=== PATIENT | male | born 1930 | race Caucasian/White ===

== ENCOUNTER 2017-02-06 19:59 | Inpatient (IN) ==
--- NOTE | 2017-02-06 20:44 | Emergency Department Note ---
Arrival - Arrival Chief Complaint: Upper Respiratory Stated Complaint: sob,cold ED Nursing Triage Note: C/O Productive cough/fever. Onset 2 weeks ago, but progressively getting worse. Pt reports that he was seen in ED Saturday for the same c/o and was started on meds which he has been taking without relief. Mode of Arrival: Ambulatory Time Seen by Provider: 02/06/17 20:36 - History of Present Illness HPI Narrative: The patient presents complaining of shortness of breath and wheezing which has worsened since the weekend. He was seen by Dr. Parker over the weekend and discharged after thorough workup. He states since that time he has had one episode of atrial fibrillation and tonight felt like his heart was getting fast again and he came in to be evaluated. He has had constant shortness of breath since the weekend which waxes and wanes. This is worse tonight and associated with audible wheezes. He denies any fever or productive cough with sputum. He says a breathing treatment given to him over the weekend greatly improved his symptoms. Allergies/Adverse Reactions: Allergies Allergy/AdvReac Type Severity Reaction Status Date / Time No Known Allergies Allergy Verified 02/02/17 09:21 Home Medications: Home Medications Medication Instructions Recorded Confirmed Type Furosemide Tab [Lasix Tab] 20 mg PO QPM 05/20/15 02/02/17 History Albuterol Inhaler [Proventil 2 puff INH Q6H PRN #1 inhaler 02/02/17 Rx Inhaler] Azithromycin [Zithromax] 500 mg PO DAILY #5 tablet 02/02/17 Rx Diltiazem HCl [Cartia XT] 300 mg PO DAILY 02/02/17 02/02/17 History Fluticasone Propionate [Flonase 1 spray BOTH NARES DAILY #10 ml 02/02/17 Rx Allergy Relief] Metoprolol Tartrate Tab [Lopressor 100 mg PO DAILY 02/02/17 02/02/17 History Tab] Warfarin [Coumadin] 7.5 mg PO QPM 02/02/17 02/02/17 History guaiFENesin/DM ER 600-30 [Mucinex 1 tablet PO BID #20 tablet 02/02/17 Rx Dm 600-30 MG] Review of System - Review of System 12 point system: reviewed and no additional remarkable complaints except as stated Medical,Surgical,& Family Hx - Medical History Cardio: History of: Cardiac Dysrhythmia (A-FIB), CAD, Hypertension Respiratory: History of: COPD Other: History of: Miscellaneous Medical Problems (history of Lyme disease) - Social History Smoking Status: Never smoker Frequency of Alcohol Use: None Type of Drug Use: None Exam Physical Examination: General: Patient is well-developed and well-nourished with no acute distress noted. HEENT: The extraocular muscles are intact. Oropharynx is moist. There is no erythema or exudate. The tympanic membranes are shiny bilaterally. Neck: There is no adenopathy. Full range of motion is noted without pain. The trachea is midline. No JVD is present. Lungs: There is normal excursion of the chest with the lungs demonstrating rhonchi and wheezes bilaterally. No subcostal retractions are present. There is no point tenderness present. Heart: The heart has a regular rate and rhythm with no gallops or murmurs. Abdomen: The abdomen is nontender and nondistended with no rebound, guarding, or masses. Bowel sounds are normal. Back: The back demonstrates a normal appearance with no evidence of trauma. Genitourinary: Not examined. Extremities: The extremities demonstrate no clubbing, cyanosis, or edema. The visualized range of motion is normal. They appear atraumatic. Neuro: Cranial nerves II through XII are checked and intact. There is no focal motor or sensory deficit seen in the extremities. Skin: Skin is warm and dry with no evidence of rash. Vital Signs: Vital Signs Temperature 100.5 F H 02/06/17 20:04 Pulse Rate 93 H 02/06/17 22:09 Respiratory Rate 20 02/06/17 22:09 Blood Pressure 117/57 02/06/17 22:09 O2 Sat by Pulse Oximetry 93 L 02/06/17 22:09 Course - Consultations Consultation #1: Dr. Josh Ahumada will evaluate and admit the patient. Time: 22:26 Results - Labs CBC & BMP: 02/06/17 20:29 02/06/17 20:29 Lab Results: I have reviewed the patients labs Labs: Lab Results WBC 10.0 T/CUMM (4-12) 02/06/17 20:29 RBC 5.06 MC/CUMM (3.8-5.5) 02/06/17 20:29 Hgb 15.4 GM/DL (14.0-18.0) 02/06/17 20: Hct 46.3 VOL% (42.0-52.0) 02/06/17 20: MCV 91.5 FL (87-102) 02/06/17 20: MCH 30 PG (27-34) 02/06/17 20: MCHC 33.3 GM/DL (32-36) 02/06/17 20: RDW 14.3 % (9.3-17.3) 02/06/17: Plt Count 179 T/CUMM (130-400) 02/06/17 20: MPV 10.3 FL (9.6-12.0) 02/06/17: Neut % (Auto) 72.6 % (38.7-73.9) 02/06/17: Lymph % (Auto) 10.6 % (21.2-54.2) L 02/06/17: [place] % (Auto) 12.2 % (1.7-12.7) 02/06/17: Eos % (Auto) 2.5 % (0.00-10.9) 02/06/17 20: Baso % (Auto) 0.8 % (0.0-0.8) 02/06/17: Neut # (Auto) 7.3 10*3/uL (1.4-7.4) 02/06/17: Lymph # (Auto) 1.1 10*3/uL (1.4-4.0) L 02/06/17: [place] # (Auto) 1.2 10*3/uL (0.11-0.8) H 02/06/17 20: Eos # (Auto) 0.3 10*3/uL (0.0-0.87) 02/06/17: Baso # (Auto) 0.1 10*3/uL (0.0-0.2) 02/06/17 20: Immature Gran % 1.3 % 02/06/17 20: Nucleated RBC % 0.0 /100WBC 02/06/17 20: Immature Gran # 0.13 # 02/06/17 20: Nucleated RBCs # 0.00 10*3/uL 02/06/17 20:29 INR 3.6 02/06/17 20:29 PT Patient/Control Mix 41.6 SECS D 02/06/17 20: Sodium 140 MMOL/L (136-145) 02/06/17 20: Potassium 4.0 MMOL/L (3.5-5.1) 02/06/17 20: Chloride 105 MMOL/L (98-107) 02/06/17 20: Carbon Dioxide 27 MMOL/L (21-32) 02/06/17 20: Anion Gap 12.0 MMOL/L (5.0-15.0) 02/06/17 20: BUN 16 MG/DL (7-18) 02/06/17: Creatinine 1.20 MG/DL (0.70-1.30) 02/06/17 20: GFR Calculation 64 ML/MIN 02/06/17: BUN/Creatinine Ratio 13.00 RATIO (6.00-20.00) 02/06/17: Glucose 107 MG/DL (74-106) H 02/06/17 20: Calculated Osmolality 279.4 MOS/KG (273-304) 02/06/17 20: Calcium 8.3 MG/DL (8.5-10.1) L 02/06/17: Magnesium 2.2 MG/DL (1.8-2.4) 02/06/17 20: Total Bilirubin 1.10 MG/DL (0.2-1.0) H 02/06/17 20: AST 21 U/L (0-37) 02/06/17: ALT 18 U/L (16-61) 02/06/17 20: Alkaline Phosphatase 86 U/L (45-117) 02/06/17 20:29 Troponin I < 0.015 NG/ML (0.00-0.045) 02/06/17 20: B-Natriuretic Peptide 161 PG/ML (2-100) H 02/06/17 20:29 Total Protein 6.3 G/DL (6.4-8.3) L 02/06/17 20: Albumin 3.4 G/DL (3.4-5.0) 02/06/17 20: Globulin 2.9 G/DL (2.3-3.5) 02/06/17 20:29 Albumin/Globulin Ratio 1.1 RATIO (1.1-2.2) 02/06/17 20:29 - Diagnostic Findings Procedure: Chest x-ray: report reviewed by me Disposition Clinical Impression: Chronic anticoagulation, Afib, Hypertension, Hypoxemia, Wheezing Case discussed with: patient, patient's family Disposition: Still a Patient Condition: Stable Time of Disposition: 22:26
[2017-02-06] MEDS ORDERED: methylPREDNISolone SOD SUC 125 MG/2 ML VIAL IV STA (20:46)
[2017-02-06] MEDS ORDERED: ALBUTEROL 2.5 MG/3 ML NEB RESP TX STA (20:46)
[2017-02-06] MEDS ORDERED: methylPREDNISolone SOD SUC 125 MG/2 ML VIAL ONE (20:49)
[2017-02-06 20:57] LABS: Basophils # 0.1 10*3/uL (0.0-0.2); Basophils % 0.8 % (0.0-0.8); Eosinophils # 0.3 10*3/uL (0.0-0.87); Eosinophils % 2.5 % (0.00-10.9); Hematocrit 46.3 VOL% (42.0-52.0); Hemoglobin 15.4 GM/DL (14.0-18.0); Immature Granulocytes % 1.3 %; Immature Granulocytes Absolute 0.13 #; Lymphocytes # 1.1 10*3/uL (1.4-4.0); Lymphocytes % 10.6 % (21.2-54.2); Mean Corpuscular HGB Conc 33.3 GM/DL (32-36); Mean Corpuscular Hemoglobin 30 PG (27-34); Mean Corpuscular Volume 91.5 FL (87-102); Mean Platelet Volume 10.3 FL (9.6-12.0); Monocytes # 1.2 10*3/uL (0.11-0.8); Monocytes % 12.2 % (1.7-12.7); Neutrophils # 7.3 10*3/uL (1.4-7.4); Neutrophils % 72.6 % (38.7-73.9); Platelet Count 179 T/CUMM (130-400); Red Blood Count 5.06 MC/CUMM (3.8-5.5); Red Cell Distribution Width 14.3 % (9.3-17.3)
[2017-02-06 21:07] LABS: INR 3.6
[2017-02-06 21:08] LABS: PT Patient Result 41.6 SECS
[2017-02-06 21:12] LABS: Alanine Aminotransferase 18 U/L (16-61); Albumin 3.4 G/DL (3.4-5.0); Alkaline Phosphatase 86 U/L (45-117); Aspartate Amino Transferase 21 U/L (0-37); Blood Urea Nitrogen 16 MG/DL (7-18); Calcium 8.3 MG/DL (8.5-10.1); Glucose 107 MG/DL (74-106); Magnesium 2.2 MG/DL (1.8-2.4); Osmolality,Calculated 279.4 MOS/KG (273-304); Sodium 140 MMOL/L (136-145); Total Protein 6.3 G/DL (6.4-8.3); Troponin I Only < 0.015 NG/ML (0.00-0.045)
--- NOTE | 2017-02-06 21:15 | XRay Report ---
Exam: XR chest 1V portable Date: 02/06/2017 8:47 PM Indication: Shortness of breath Comparison: 02/02/2017 Technical: AP semierect portable Findings: Mild cardiac enlargement present. Basilar atelectatic change present. Surgical clips present mid sternal midclavicular region. Oxygen tubing is present. ASVD is present. No pneumothorax. Arthritic change present over the shoulders right greater than left Impression: 1. Cardiomegaly 2. Minimal basilar atelectasis bilaterally without consolidating infiltrate 3. Arthritic changes right shoulder 4. Previous surgery over the midclavicular region PROCEDURE INTERPRETED AT [facility] DEPARTMENT OF RADIOLOGY Final Report Signed by: Dr. Desmond Pete
[2017-02-06] MEDS ORDERED: ACETAMINOPHEN 325 MG TABLET PO PRN (23:00)
[2017-02-06] MEDS ORDERED: ONDANSETRON 4 MG/2 ML VIAL IV PRN (23:00)
[2017-02-06] MEDS ORDERED: MORPHINE 2 MG/1 ML SYRINGE IV PRN (23:00)
--- NOTE | 2017-02-06 23:03 | Hospitalist History & Physical ---
Assessment and Plan (1) Acute exacerbation of chronic obstructive pulmonary disease (COPD) Status: Acute Current Visit: Yes (2) Acute bronchitis Status: Acute Current Visit: Yes (3) Chronic atrial fibrillation Status: Acute Assessment and plan: Plan: We will admit for IV antibiotics, breathing treatments, steroids Continue anticoagulation for chronic atrial fibrillation, daily PT/INR Current Visit: Yes History of Present Illness Chief complaint: Difficulty breathing 1-2 days with cough History of present illness: Mr. Rader is a 86 year old male with COPD, formerly a patient of Dr. Castillo, chronic atrial fibrillation, on Coumadin, who is here with a days worsening of productive cough and wheezing. He denies hemoptysis, fever, or chills. He denies chest pain. He is a non-smoker. His cough is productive of yellow sputum. He has no nausea vomiting or diarrhea. He is short of breath but in no distress. His symptoms are constant and worsening. Home Medications Medication Instructions Recorded Confirmed Type Furosemide Tab [Lasix Tab] 20 mg PO QPM 05/20/15 02/02/17 History Albuterol Inhaler [Proventil 2 puff INH Q6H PRN #1 inhaler 02/02/17 Rx Inhaler] Azithromycin [Zithromax] 500 mg PO DAILY #5 tablet 02/02/17 Rx Diltiazem HCl [Cartia XT] 300 mg PO DAILY 02/02/17 02/02/17 History Fluticasone Propionate [Flonase 1 spray BOTH NARES DAILY #10 ml 02/02/17 Rx Allergy Relief] Metoprolol Tartrate Tab [Lopressor 100 mg PO DAILY 02/02/17 02/02/17 History Tab] Warfarin [Coumadin] 7.5 mg PO QPM 02/02/17 02/02/17 History guaiFENesin/DM ER 600-30 [Mucinex 1 tablet PO BID #20 tablet 02/02/17 Rx Dm 600-30 MG] Allergies Allergy/AdvReac Type Severity Reaction Status Date / Time No Known Allergies Allergy Verified 02/02/17 09:21 Medical,Surgical,& Family Hx - Medical History Cardio: History of: Cardiac Dysrhythmia (A-FIB), CAD, Hypertension Respiratory: History of: COPD Gastrointestinal: No history of: GERD Other: History of: Miscellaneous Medical Problems (history of Lyme disease) - Surgical History HEENT Surgeries: Surgical HX of: Eye Surgery - Family History Family History: Reports;: Family Hypertension - Social History Smoking Status: Never smoker Frequency of Alcohol Use: None Type of Drug Use: None Marital Status: Lives With:: Alone Functional capacity: independent ambulation Review of systems: A 12 point review of systems is negative except as specified in the HPI Exam - Constitutional Vitals: Period Temp Pulse Resp BP Sys/Miles Pulse Ox Last 24 Hr 100.5 F-100.5 F 77-94 20-30 117-154/57-99 92-99 Exam: EXAM: CONSTITUTIONAL: non toxic, NAD, hard of hearing HEENT: NC, AT, OP benign, ARIELLE, EOMI CV: Irregular + 2/6 systolic ejection murmur RESP: Coarse bilaterally, bilateral expiratory wheezes with prolonged expiratory phase GI: abd soft, NT, ND, +bowel sounds INTEGUMENTARY: no lesions or rash EXTREMITIES: Trace bilateral lower extremity edema NEURO: no focal deficits PSYCH: Awake, alert, pleasant Results - Labs CBC & BMP: 02/06/17 20:29 02/06/17 20:29 Lab Results: I have reviewed the past 24 hour labs - Diagnostic Findings Procedure: Chest x-ray: image reviewed by me, report reviewed by me Quality Measures - VTE Contraindication to Pharmacological VTE Prophylaxis: Already on Theraputic Agent , No Prophylaxis Needed
[2017-02-07] MEDS: LEVOFLOXACIN INJ 750 MG in PREMIX 1 EACH IV SCH ×2 (01:14→23:51)
[2017-02-07] MEDS: ALBUTEROL/IPRATROPIUM 3 ML NEB RESP TX SCH ×4 (02:10→19:49)
[2017-02-07] MEDS: methylPREDNISolone SOD SUC 40 MG/1 ML VIAL IV SCH ×3 (04:50→20:05)
--- NOTE | 2017-02-07 08:34 | EKG Report ---
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
[2017-02-07] MEDS: guaiFENesin/DM ER 600-30 MG TABLET PO SCH ×2 (08:47→20:05)
[2017-02-07] MEDS: PANTOPRAZOLE 40 MG TABLET PO SCH (08:47)
[2017-02-07] MEDS: BUDESONIDE/FORMOTEROL 160-4.5 INHALER 6 GM INH SCH ×2 (08:47→20:08)
[2017-02-07] MEDS: FLUTICASONE 50 MCG NASAL SPRAY 16 GM BOTTLE BOTH NARES SCH (08:48)
[2017-02-07] MEDS: METOPROLOL TARTRATE 100 MG TABLET PO SCH (08:48)
[2017-02-07] MEDS: DILTIAZEM CD 300 MG CAPSULE PO SCH (08:48)
[2017-02-07 09:34] LABS: Basophils % 0.2 % (0.0-0.8); Hematocrit 44.3 VOL% (42.0-52.0); Hemoglobin 14.7 GM/DL (14.0-18.0); Immature Granulocytes % 3.8 %; Immature Granulocytes Absolute 0.22 #; Lymphocytes # 0.4 10*3/uL (1.4-4.0); Lymphocytes % 6.8 % (21.2-54.2); Mean Corpuscular HGB Conc 33.2 GM/DL (32-36); Mean Corpuscular Hemoglobin 30 PG (27-34); Mean Corpuscular Volume 91.3 FL (87-102); Mean Platelet Volume 10.5 FL (9.6-12.0); Monocytes # 0.1 10*3/uL (0.11-0.8); Monocytes % 1.2 % (1.7-12.7); Platelet Count 150 T/CUMM (130-400); Red Blood Count 4.85 MC/CUMM (3.8-5.5); Red Cell Distribution Width 14.1 % (9.3-17.3); White Blood Count 5.7 T/CUMM (4-12)
[2017-02-07 09:52] LABS: Albumin 3.1 G/DL (3.4-5.0); Bilirubin,Total 1.2 MG/DL (0.2-1.0); Calcium 8.2 MG/DL (8.5-10.1); Osmolality,Calculated 287.4 MOS/KG (273-304); Potassium 3.9 MMOL/L (3.5-5.1); Total Protein 5.6 G/DL (6.4-8.3)
--- NOTE | 2017-02-07 14:19 | Hospitalist Progress Note ---
Assessment and Plan (1) Acute exacerbation of chronic obstructive pulmonary disease (COPD) Status: Acute Assessment and plan: The patient is admitted to hospital with exacerbation of COPD. We will continue treatment with beta agonist nebulized breathing therapies, intravenous steroids, and intravenous antibiotic. Will reevaluate breathing basic metabolic profile and CBC in the morning. Anticipated length of stay is 7 days. Current Visit: Yes (2) Hypertension Status: Acute Current Visit: Yes Qualifiers: Hypertension type: essential hypertension Qualified Code(s): I10 - Essential (primary) hypertension Hospitalist: Subjective Interval history: The patient was admitted to the hospital yesterday evening with COPD exacerbation. The patient had previously seen Dr. Castillo for many years. The patient's symptoms are improved from last night but he did have some tremulousness today which was likely on account of the beta agonist treatment. The patient's appetite is improving and he has less shortness of breath at rest. Exam - Constitutional Vitals: Period Temp Pulse Resp BP Sys/Miles Pulse Ox Last 24 Hr 96.4 F-98.3 F 71-104 18-25 108-125/53-77 91-98 Exam: Constitutional System: Moderate distress. Mild tremulousness. Head: Normocephalic, atraumatic. Ears, Nose and Throat System: No evidence of Otitis or Mastoiditis. No epistaxis or discharge Eyes System: Pupils equal, round, and reactive. Extraocular muscles intact. Neck: Supple, without adenopathy, No jugular venous distention. No thyromegaly , neck mass, or prior surgery apparent. Respiratory System: Chest moderate air trapping mild wheezing to auscultation. Cardiovascular System: Heart with regular tachycardic rate and rhythm. No murmur. GI System: Abdomen soft, nontender. Normo active bowel sounds present. Musculoskeletal System: limbs with no pedal edema. Full distal pulses. Neurological System: No discernable sensory deficit. No aphasia Psychiatric System: Conversation is rational Results - Labs CBC & BMP: 02/07/17 09:09 02/07/17 09:09 Lab Results: I have reviewed the past 24 hour labs Quality Measures - VTE Contraindication to Pharmacological VTE Prophylaxis: Already on Theraputic Agent , No Prophylaxis Needed
[2017-02-07] MEDS: FUROSEMIDE 20 MG TABLET PO SCH (20:04)
[2017-02-07] MEDS: BISACODYL 5 MG TABLET PO PRN (20:07)
[2017-02-08] MEDS: ALBUTEROL/IPRATROPIUM 3 ML NEB RESP TX SCH ×4 (00:07→23:41)
[2017-02-08] MEDS: methylPREDNISolone SOD SUC 40 MG/1 ML VIAL IV SCH ×3 (04:23→23:15)
[2017-02-08 06:55] LABS: Basophils % 0.2 % (0.0-0.8); Hematocrit 42.4 VOL% (42.0-52.0); Hemoglobin 14.2 GM/DL (14.0-18.0); Immature Granulocytes % 2.2 %; Immature Granulocytes Absolute 0.29 #; Lymphocytes # 0.7 10*3/uL (1.4-4.0); Mean Corpuscular HGB Conc 33.5 GM/DL (32-36); Mean Corpuscular Hemoglobin 31 PG (27-34); Mean Corpuscular Volume 91.6 FL (87-102); Mean Platelet Volume 10.8 FL (9.6-12.0); Monocytes # 0.7 10*3/uL (0.11-0.8); Monocytes % 5.3 % (1.7-12.7); Neutrophils # 11.4 10*3/uL (1.4-7.4); Neutrophils % 87.3 % (38.7-73.9); Platelet Count 171 T/CUMM (130-400); Red Blood Count 4.63 MC/CUMM (3.8-5.5); Red Cell Distribution Width 14.5 % (9.3-17.3); White Blood Count 13.1 T/CUMM (4-12)
[2017-02-08 07:16] LABS: Calcium 8.6 MG/DL (8.5-10.1); Magnesium 2.4 MG/DL (1.8-2.4); Osmolality,Calculated 284.3 MOS/KG (273-304); Potassium 3.7 MMOL/L (3.5-5.1)
[2017-02-08] MEDS: METOPROLOL TARTRATE 100 MG TABLET PO SCH (08:58)
[2017-02-08] MEDS: DILTIAZEM CD 300 MG CAPSULE PO SCH (08:58)
[2017-02-08] MEDS: BUDESONIDE/FORMOTEROL 160-4.5 INHALER 6 GM INH SCH ×2 (08:58→20:46)
[2017-02-08] MEDS: PANTOPRAZOLE 40 MG TABLET PO SCH (08:58)
[2017-02-08] MEDS: guaiFENesin/DM ER 600-30 MG TABLET PO SCH ×2 (08:58→20:46)
[2017-02-08] MEDS: FLUTICASONE 50 MCG NASAL SPRAY 16 GM BOTTLE BOTH NARES SCH (08:59)
--- NOTE | 2017-02-08 10:53 | Hospitalist Progress Note ---
Assessment and Plan (1) Acute exacerbation of chronic obstructive pulmonary disease (COPD) Status: Acute Assessment and plan: The patient is admitted to hospital with exacerbation of COPD. We will continue treatment with beta agonist nebulized breathing therapies, intravenous steroids, and intravenous antibiotic. I am going to reduce Solu-Medrol to 20 mg twice daily and reduce DuoNeb to 1.5 mL every 8 hours. Will reevaluate breathing tomorrow and anticipate discharge home. Current Visit: Yes (2) Hypertension Status: Acute Current Visit: Yes Qualifiers: Hypertension type: essential hypertension Qualified Code(s): I10 - Essential (primary) hypertension Hospitalist: Subjective Interval history: The patient is breathing better. He complains of jitteriness and nervousness. He did not cooperate with nebulized therapy this morning on account of the palpitations it caused on a previous occasion. Exam - Constitutional Vitals: Period Temp Pulse Resp BP Sys/Miles Pulse Ox Last 24 Hr 96.4 F-98.3 F 52-126 16-20 94-125/49-77 92-97 Exam: Constitutional System: Minimal distress. Mild tremulousness. Head: Normocephalic, atraumatic. Ears, Nose and Throat System: No evidence of Otitis or Mastoiditis. No epistaxis or discharge Eyes System: Pupils equal, round, and reactive. Extraocular muscles intact. Neck: Supple, without adenopathy, No jugular venous distention. No thyromegaly , neck mass, or prior surgery apparent. Respiratory System: Chest minimal air trapping mild wheezing to auscultation. Cardiovascular System: Heart with regular tachycardic rate and rhythm. No murmur. GI System: Abdomen soft, nontender. Normo active bowel sounds present. Musculoskeletal System: limbs with no pedal edema. Full distal pulses. Neurological System: No discernable sensory deficit. No aphasia Psychiatric System: Conversation is rational Results - Labs CBC & BMP: 02/08/17 06:24 02/08/17 06:24 Lab Results: I have reviewed the past 24 hour labs Quality Measures - VTE Contraindication to Pharmacological VTE Prophylaxis: Already on Theraputic Agent , No Prophylaxis Needed
[2017-02-08] MEDS: BISACODYL 5 MG TABLET PO PRN (11:51)
[2017-02-08] MEDS: FUROSEMIDE 20 MG TABLET PO SCH (18:48)
[2017-02-08] MEDS: LEVOFLOXACIN INJ 750 MG in PREMIX 1 EACH IV SCH (23:14)
[2017-02-09] MEDS: ALBUTEROL/IPRATROPIUM 3 ML NEB RESP TX SCH (07:16)
[2017-02-09] MEDS: guaiFENesin/DM ER 600-30 MG TABLET PO SCH (09:00)
[2017-02-09] MEDS: DILTIAZEM CD 300 MG CAPSULE PO SCH (09:00)
[2017-02-09] MEDS: METOPROLOL TARTRATE 100 MG TABLET PO SCH (09:01)
[2017-02-09] MEDS: FLUTICASONE 50 MCG NASAL SPRAY 16 GM BOTTLE BOTH NARES SCH (09:01)
[2017-02-09] MEDS: PANTOPRAZOLE 40 MG TABLET PO SCH (09:01)
[2017-02-09] MEDS: BUDESONIDE/FORMOTEROL 160-4.5 INHALER 6 GM INH SCH (09:01)
[2017-02-09 09:19] VITALS: BP 126/70
--- NOTE | 2017-02-09 10:34 | Discharge Summary ---
Hospital Course - Hospital Course Hospital Course: The patient was admitted to the hospital with COPD exacerbation. The patient improved over 4 days period of time. The patient is ready for transition to oral medications and follow-up with Dr. Beckman as an outpatient. On the date of discharge, the chest is clear, abdomen soft, and heart has regular rate and rhythm. - Time spent with patient Time with patient DS: Greater than 30 minutes Diagnosis - Discharge Diagnosis (1) Acute exacerbation of chronic obstructive pulmonary disease (COPD) Status: Chronic (2) Hypertension Status: Chronic Discharge Plan - Discharge Data Disposition: Disch To Home/Self Care Condition at Discharge: Stable Discharge Diet: heart healthy Activity: resume usual activities as tolerated - Discharge Medications New Cefuroxime Tab [Ceftin] 250 mg PO BID #14 tablet predniSONE TAB [PredniSONE] 10 mg PO BID #30 tablet Budesonide/Formoterol 160-4.5 [Symbicort 160-4.5] 2 puff INH BID #2 inhaler Continue Furosemide Tab [Lasix Tab] 20 mg PO QPM dilTIAZem HCl [Cartia XT] 300 mg PO DAILY Warfarin [Coumadin] 7.5 mg PO QPM Metoprolol Tartrate Tab [Lopressor Tab] 100 mg PO DAILY Albuterol Inhaler [Proventil Inhaler] 2 puff INH Q6H PRN #1 inhaler PRN Reason: Shortness Of Breath/Wheezing Fluticasone Propionate [Flonase Allergy Relief] 1 spray BOTH NARES DAILY #10 ml guaiFENesin/DM ER 600-30 [Mucinex Dm 600-30 MG] 1 tablet PO BID #20 tablet Discontinued Azithromycin [Zithromax] 500 mg PO DAILY #5 tablet - Follow Up or Referral Follow Up: Nate Beckman DO [Physician] - 1 Week - Forms/Instructions Exam - Constitutional Vitals: Period Temp Pulse Resp BP Sys/Miles Pulse Ox Last 24 Hr 97.4 F-99.1 F 79-115 18-30 97-129/60-79 90-99 DS: Provider Date of admission: 02/06/17 23:00 Primary care physician: . No PCP Attending physician on admission: Hao Golden MD Consults: 02/07/17 00:49 Consult to Dietitian [CONS] Routine Reason for Dietitian: Diet Recommendations 02/07/17 01:20 Consult to Pharmacy [CONS] Routine Reason for Pharmacy Consult: Adjust Meds Renal Funct Discharging clinician: Hao Golden MD
[2017-02-09] MEDS: methylPREDNISolone SOD SUC 40 MG/1 ML VIAL IV SCH (11:00)
== END 2017-02-09 11:42 | disposition home or self-care (01) | DRG 192 ==
LOC: N.ED 19:59 → N.EDINP 23:00 → N.5E 02-07 00:05
PROVIDERS: ADMIT Internal Medicine; ATTEND Internal Medicine

== ENCOUNTER 2017-05-21 21:34 | Inpatient (IN) ==
[2017-05-21] MEDS ORDERED: DILTIAZEM 100 MG VIAL.ADD IV ONE (21:45)
[2017-05-21] MEDS ORDERED: DILTIAZEM 50 MG/10 ML VIAL IV ONE ×2 (21:45→21:46)
[2017-05-21] MEDS ORDERED: DILTIAZEM 50 MG/10 ML VIAL IV STA (21:50)
--- NOTE | 2017-05-21 21:55 | Emergency Department Note ---
Josh Gallardo Hilary, am scribing for, and in the presence of, Shiva Jaffe MD 21:54. Ld Gallardo Robert M, MD, personally performed the services described in this documentation, ascribed by Sada Moreno in my presence, and it is both accurate and complete . Arrival - Arrival Chief Complaint: Arrhythmia/Palpitations ED Nursing Triage Note: Pt arrives via ems from home with complaints of feeling some epigastric pain when walking to get on the lawnmower and having some sob. Pt states that pain and sob has resolved but still has some heart racing. Denies any nausea or vomiting. Mode of Arrival: Stretcher Limitations: No Limitations Source: Patient, RN Notes Reviewed Time Seen by Provider: 05/21/17 21:50 - History of Present Illness HPI Narrative: Pt is a 86 y/o male brought into the ED via EMS for c/o chest pain which onset at 1830. 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 He denies Nausea or vomiting and states that his pain is now resolved. Pt has a PMHx of A.Fib, CHF, CAD, HTN and COPD. No other complaints or problems stated in the ED. Onset (ago): hour(s) Consistency: now resolved Severity: moderate Severity scale (1-10): 4 Quality: sharp Allergies/Adverse Reactions: Allergies Allergy/AdvReac Type Severity Reaction Status Date / Time Rice Allergy Severe ANAPHYLAXIS Verified 05/18/17 13:01 Home Medications: Home Medications Medication Instructions Recorded Confirmed Type Furosemide Tab [Lasix Tab] 20 mg PO QPM 05/20/15 02/09/17 History Albuterol Inhaler [Proventil 2 puff INH Q6H PRN #1 inhaler 02/02/17 02/08/17 Rx Inhaler] Fluticasone Propionate [Flonase 1 spray BOTH NARES DAILY #10 ml 02/02/17 Rx Allergy Relief] Metoprolol Tartrate Tab [Lopressor 100 mg PO DAILY 02/02/17 02/09/17 History Tab] Warfarin [Coumadin] 7.5 mg PO SUMOTUWETHSA 02/02/17 02/09/17 History dilTIAZem HCl [Cartia XT] 300 mg PO DAILY 02/02/17 02/09/17 History guaiFENesin/DM ER 600-30 [Mucinex 1 tablet PO BID #20 tablet 02/02/17 02/09/17 Rx Dm 600-30 MG] Budesonide/Formoterol 160-4.5 2 puff INH BID #2 inhaler 02/09/17 Rx [Symbicort 160-4.5] Cefuroxime Tab [Ceftin] 250 mg PO BID #14 tablet 02/09/17 Rx Gluc Vann/Chondro Vann A/Vit C/Mn 1 tablet PO DAILY 02/09/17 02/09/17 History [Glucosamine Chondroitin Tab] Warfarin [Coumadin] 5 mg PO FR 02/09/17 02/09/17 History predniSONE TAB [PredniSONE] 10 mg PO BID #30 tablet 02/09/17 Rx Azithromycin Tab [Zithromax Tab] 250 mg PO DAILY #6 tablet 05/18/17 Rx Fexofenadine [Diane] 180 mg PO DAILY #10 tablet 05/18/17 Rx Review of System - Review of System 12 point system: reviewed and no additional remarkable complaints except as stated - Review of System Constitutional: Present: diaphoresis. Absent: fever Cardiovascular: Present: chest pain Gastrointestinal: Absent: nausea, vomiting Medical,Surgical,& Family Hx - Medical History Cardio: History of: Cardiac Dysrhythmia (A-FIB), CHF (echocardiogram of 2014 reveals EF of 50%, mild LVH, mild hypokinesis), CAD, Hypertension Endocrine: History of: Dyslipidemia Respiratory: History of: Bronchitis, COPD Gastrointestinal: No history of: GERD Musculoskeletal: History of: Musculoskeletal Problems (hx fx right hip) Other: History of: Miscellaneous Medical Problems (history of Lyme disease) - Surgical History Cardiac Surgeries: Sugical HX of: Cardiac Surgery (Mechanical aortic valve replacement) HEENT Surgeries: Surgical HX of: Eye Surgery Orthopedic Surgeries: Surgical HX of;: Total Hip Replacement (right) - Family History Family History: Reports;: Family Hypertension - Social History Smoking Status: Never smoker Frequency of Alcohol Use: None Type of Drug Use: None Exam Vital Signs: Vital Signs Temperature 98.3 F 05/21/17 21:34 Pulse Rate 147 H 05/21/17 21:34 Respiratory Rate 20 05/21/17 21:34 Blood Pressure 124/100 05/21/17 21:34 O2 Sat by Pulse Oximetry 95 05/21/17 21:34 - General General appearance: alert, in no apparent distress - Head Head exam: Present: atraumatic, normocephalic - Eye Eye exam: Present: normal appearance, PERRL, EOMI - ENT ENT exam: Present: mucous membranes moist, TM's normal bilaterally. Absent: mucous membranes dry - Neck Neck exam: Present: full ROM, trachea midline. Absent: tenderness - Chest Chest inspection: Present: symmetric chest wall rise. Absent: tenderness - Respiratory Respiratory exam: Present: normal lung sounds bilaterally. Absent: respiratory distress - Cardiovascular Cardiovascular exam: Present: tachycardia, irregular rhythm, normal heart sounds. Absent: murmur, rubs, gallop - Abdominal Exam Abdominal exam: Present: soft, normal bowel sounds. Absent: distention, tenderness - Extremities Exam Extremities exam: Present: full ROM. Absent: tenderness - Back Exam Back exam: Present: full ROM. Absent: tenderness - Neurological Exam Neurological exam: Present: alert, oriented X3, CN II-XII intact. Absent: motor sensory deficit - Psychiatric Psychiatric exam: Present: normal affect, normal mood - Skin Skin exam: Present: warm, dry, intact, normal color. Absent: rash Course - Consultations Consultation #1: Dr. Polo will admit the patient. Time: 22:46 Results - Labs CBC & BMP: 05/21/17 22:09 05/21/17 22:09 Lab Results: I have reviewed the patients labs Labs: Lab Results WBC 7.4 T/CUMM (4-12) 05/21/17 22:09 RBC 5.01 MC/CUMM (3.8-5.5) 05/21/17 22:09 Hgb 15.6 GM/DL (14.0-18.0) 05/21/17 22:09 Hct 44.8 VOL% (42.0-52.0) 05/21/17 22:09 MCV 89.4 FL (87-102) 05/21/17 22:09 MCH 31 PG (27-34) 05/21/17 22:09 MCHC 34.8 GM/DL (32-36) 05/21/17 22:09 RDW 13.8 % (9.3-17.3) 05/21/17 22:09 Plt Count 196 T/CUMM (130-400) 05/21/17 22:09 MPV 10.1 FL (9.6-12.0) 05/21/17 22:09 Neut % (Auto) 62.2 % (38.7-73.9) 05/21/17 22:09 Lymph % (Auto) 21.4 % (21.2-54.2) 05/21/17 22:09 [place] % (Auto) 12.3 % (1.7-12.7) 05/21/17 22:09 Eos % (Auto) 1.8 % (0.00-10.9) 05/21/17 22:09 Baso % (Auto) 1.4 % (0.0-0.8) H 05/21/17 22:09 Neut # (Auto) 4.6 10*3/uL (1.4-7.4) 05/21/17 22:09 Lymph # (Auto) 1.6 10*3/uL (1.4-4.0) 05/21/17 22:09 [place] # (Auto) 0.9 10*3/uL (0.11-0.8) H 05/21/17 22:09 Eos # (Auto) 0.1 10*3/uL (0.0-0.87) 05/21/17 22:09 Baso # (Auto) 0.1 10*3/uL (0.0-0.2) 05/21/17 22:09 Immature Gran % 0.9 % 05/21/17 22:09 Nucleated RBC % 0.0 /100WBC 05/21/17 22:09 Immature Gran # 0.07 # 05/21/17 22:09 Nucleated RBCs # 0.00 10*3/uL 05/21/17 22:09 Sodium 142 MMOL/L (136-145) 05/21/17 22:09 Potassium 4.2 MMOL/L (3.5-5.1) 05/21/17 22:09 Chloride 111 MMOL/L (98-107) H 05/21/17 22:09 Carbon Dioxide 23 MMOL/L (21-32) 05/21/17 22:09 Anion Gap 12.2 MMOL/L (5.0-15.0) 05/21/17 22:09 BUN 24 MG/DL (7-18) H 05/21/17 22:09 Creatinine 1.20 MG/DL (0.70-1.30) 05/21/17 22:09 GFR Calculation 63 ML/MIN 05/21/17 22:09 BUN/Creatinine Ratio 20.00 RATIO (6.00-20.00) 05/21/17 22:09 Glucose 113 MG/DL (74-106) H 05/21/17 22:09 Calculated Osmolality 287.1 MOS/KG (273-304) 05/21/17 22:09 Calcium 8.9 MG/DL (8.5-10.1) 05/21/17 22:09 Magnesium 2.4 MG/DL (1.8-2.4) 05/21/17 22:09 Total Creatine Kinase 56 U/L (39-308) 05/21/17 22:09 CK-MB (CK-2) 1.4 NG/ML (0.5-3.6) 05/21/17 22:09 Troponin I 0.120 NG/ML (0.00-0.045) H 05/21/17 22:09 Disposition Clinical Impression: Atrial fibrillation with RVR, Chronic atrial fibrillation, Upper respiratory infection, Elevated troponin Case discussed with: patient, patient's family Disposition: Still a Patient Condition: Stable Time of Disposition: 22:47
[2017-05-21] MEDS: DILTIAZEM INJ 100 MG in SODIUM CHLORIDE 0.9% 100 ML IV SCH (22:00)
[2017-05-21 22:18] LABS: Basophils # 0.1 10*3/uL (0.0-0.2); Basophils % 1.4 % (0.0-0.8); Eosinophils # 0.1 10*3/uL (0.0-0.87); Eosinophils % 1.8 % (0.00-10.9); Hematocrit 44.8 VOL% (42.0-52.0); Hemoglobin 15.6 GM/DL (14.0-18.0); Immature Granulocytes % 0.9 %; Immature Granulocytes Absolute 0.07 #; Lymphocytes # 1.6 10*3/uL (1.4-4.0); Lymphocytes % 21.4 % (21.2-54.2); Mean Corpuscular HGB Conc 34.8 GM/DL (32-36); Mean Corpuscular Hemoglobin 31 PG (27-34); Mean Corpuscular Volume 89.4 FL (87-102); Mean Platelet Volume 10.1 FL (9.6-12.0); Monocytes # 0.9 10*3/uL (0.11-0.8); Monocytes % 12.3 % (1.7-12.7); Neutrophils # 4.6 10*3/uL (1.4-7.4); Neutrophils % 62.2 % (38.7-73.9); Platelet Count 196 T/CUMM (130-400); Red Blood Count 5.01 MC/CUMM (3.8-5.5); Red Cell Distribution Width 13.8 % (9.3-17.3); White Blood Count 7.4 T/CUMM (4-12)
[2017-05-21 22:40] LABS: Blood Urea Nitrogen 24 MG/DL (7-18); Calcium 8.9 MG/DL (8.5-10.1); Glucose 113 MG/DL (74-106); Magnesium 2.4 MG/DL (1.8-2.4); Osmolality,Calculated 287.1 MOS/KG (273-304); Potassium 4.2 MMOL/L (3.5-5.1); Sodium 142 MMOL/L (136-145)
[2017-05-21] MEDS ORDERED: POTASSIUM CHLORIDE 20 MEQ TABLET PO PRN (22:47)
[2017-05-21] MEDS ORDERED: ZALEPLON 5 MG CAPSULE PO PRN (22:47)
[2017-05-21] MEDS ORDERED: ACETAMINOPHEN 325 MG TABLET PO PRN (22:47)
[2017-05-21] MEDS ORDERED: MAGNESIUM SULF RIDER 2 GM in PREMIX 1 EACH IV PRN (22:47)
[2017-05-21] MEDS ORDERED: MAGNESIUM SULF RIDER 4 GM in PREMIX 1 EACH IV PRN (22:47)
[2017-05-22] MEDS: DILTIAZEM INJ 100 MG in SODIUM CHLORIDE 0.9% 100 ML IV SCH (06:16)
--- NOTE | 2017-05-22 07:57 | EKG Report ---
Stationary ECG Study 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
--- NOTE | 2017-05-22 08:03 | EKG Report ---
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1930 Requested by: Eduardo Downs Order Number: [id number] Reading MD: DAYAN EVANS Intervals [place] Rate: 81 P: 999 RI: 0 QRS: -64 QRSD: 127 T: -84 QT: 464 QTc: 501 Interpretive Statements ATRIAL FIBRILLATION WITH ABERRANT CONDUCTION OR VENTRICULAR PREMATURE COMPLEXES MARKED LEFT AXIS DEVIATION POSSIBLE RIGHT VENTRICULAR CONDUCTION DELAY POSSIBLE ANTERIOR MYOCARDIAL INFARCTION, OF INDETERMINATE AGE MARKED T-WAVE ABNORMALITY, CONSIDER LATERAL ISCHEMIA MODERATE T-WAVE ABNORMALITY, CONSIDER INFERIOR ISCHEMIA Electronically Signed On 05-24-17 15:45:16 CDT by DAYAN EVANS [email or web address]
[2017-05-22 08:26] LABS: INR 2.4
[2017-05-22 08:27] LABS: PT Patient Result 26.4 SECS
--- NOTE | 2017-05-22 08:27 | XRay Report ---
History: Chest pain. Shortness of breath Date: 05/22/2017 Study: Chest x-ray AP portable Comparison exam: February 06, 2017 There is cardiomegaly. The midsternal contours are unchanged. The pulmonary vasculature is upper normal. There is no gross pleural effusion. There is some mild platelike scar with or without subsegmental atelectasis in the right lower lung. There is no melchor consolidated pneumonia. Shallow breath. Osseous structures are unchanged. Impression: Shallow inspiration. Mild platelike scar/subsegmental atelectasis right lung base. Stable cardiomegaly. No definite overall change from the previous study PROCEDURE INTERPRETED AT [facility] DEPARTMENT OF RADIOLOGY Final Report Signed by: Dr. Lina Gonsales
--- NOTE | 2017-05-22 08:33 | Cardiology History & Physical ---
<Lisseth Shelley E - Last Filed: 05/22/17 11:38> Assessment and Plan - Time spent with patient Time spent with patient: Greater than 30 minutes (1) Chest pain Status: Suspected Assessment and plan: SEE PLAN OF CARE LISTED BELOW Current Visit: Yes (2) COPD (chronic obstructive pulmonary disease) Status: Chronic Assessment and plan: SEE PLAN OF CARE LISTED BELOW Current Visit: Yes (3) High risk medication use Status: Chronic Assessment and plan: SEE PLAN OF CARE LISTED BELOW Current Visit: Yes (4) Chronic anticoagulation Status: Chronic Assessment and plan: SEE PLAN OF CARE LISTED BELOW Current Visit: No (5) Atrial fibrillation with RVR Status: Acute Current Visit: Yes History of Present Illness Chief complaint: chest pain History of present illness: 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 VINES Mr. Rader, 86WM, followed by Dr. Malhotra. Risk factors include: advanced age , hypertension, sedentary lifestyle. History of chronic atrial fibrillation ( takes Coumadin for stroke prevention), COPD. Although the admission ER note states he has had mechanical aortic valve replacement he has NOT had this procedure. According to September [address] Malhotra, patient has a history of abnormal perfusion scan but has declined cardiac catheterization on several occasions. Last echo March 15, 2017: EF 40%, moderate aortic valve sclerosis with minimal stenosis. Arrived to the ED of [facility] May 21, 2017 with complaints of chest pain which began around 1830. Patient was beginning to mow his lawn when he began to experience a chest pain described as "tight" in the center of his chest without radiation. He became diaphoretic but denies nausea or vomiting. The chest discomfort lasted approximately 10-15 minutes and resolved on its own. He can identify no aggravating nor any alleviating factors, currently chest pain-free. Unable to write the discomfort on a scale of 1-10. First set of cardiac biomarkers negative, EKG on arrival revealed atrial fibrillation with rapid ventricular response. He was given IV Diltiazem and his heart rate has improved. INR 2.3. Chest x-ray stable. Of note, the patient was in the emergency department approximately 3 days prior to this admission for sinus congestion. He is currently taking P. rednisone for URI. Dr. Dykes is present, has seen and examined the patient. At this point, we will not repeat echo as there is a recent echo. Patient is having no more chest pain and actually states that he feels relatively well. We will restart his home medications with the exception of Coumadin. He is INR is therapeutic at this point and will hold until further plan of care can be delineated. Transition IV Diltiazem to oral Diltiazem. Continue to cycle his cardiac biomarkers and EKG. Patient would like to be discharged home and will continue to follow through the afternoon with hopeful plans on discharging tomorrow if he continues to improve. We can arrange for follow-up with Dr. Malhotra within a few weeks at discharge. ASSESSMENT/PLAN: 1. CHEST PAIN - currently chest pain-free. Continue to monitor cardiac biomarkers and EKG. Add PPI 2. ATRIAL FIB WITH RVR - currently rate controlled. Transitioning from IV to oral calcium channel marifer 3. HYPERTENSION - usually well controlled. Will adjust medications accordingly during hospital stay. 4. COPD - restart his numerous inhalers and pulmonary medications. 5. CARDIOMYOPATHY - etiology undetermined, EF 40%. 6. HIGH RISK MEDICATION - Coumadin for stroke prevention Home Medications Medication Instructions Recorded Confirmed Type Furosemide Tab [Lasix Tab] 20 mg PO QPM 05/20/15 05/22/17 History Albuterol Inhaler [Proventil 2 puff INH Q6H PRN #1 inhaler 02/02/17 05/22/17 Rx Inhaler] Fluticasone Propionate [Flonase 1 spray BOTH NARES DAILY #10 ml 02/02/17 Rx Allergy Relief] Metoprolol Tartrate Tab [Lopressor 50 mg PO DAILY 02/02/17 05/22/17 History Tab] Warfarin [Coumadin] 7.5 mg PO SUMOTUWETHSA 02/02/17 05/22/17 History dilTIAZem HCl [Cartia XT] 300 mg PO DAILY 02/02/17 05/22/17 History guaiFENesin/DM ER 600-30 [Mucinex 1 tablet PO BID #20 tablet 02/02/17 05/22/17 Rx Dm 600-30 MG] Budesonide/Formoterol 160-4.5 2 puff INH BID #2 inhaler 02/09/17 05/22/17 Rx [Symbicort 160-4.5] Cefuroxime Tab [Ceftin] 250 mg PO BID #14 tablet 02/09/17 05/22/17 Rx Gluc Vann/Chondro Vann A/Vit C/Mn 1 tablet PO DAILY 02/09/17 05/22/17 History [Glucosamine Chondroitin Tab] Warfarin [Coumadin] 5 mg PO FR 02/09/17 05/22/17 History Azithromycin Tab [Zithromax Tab] 250 mg PO DAILY #6 tablet 05/18/17 05/22/17 Rx Fexofenadine [Diane] 180 mg PO DAILY #10 tablet 05/18/17 05/22/17 Rx Allergies Allergy/AdvReac Type Severity Reaction Status Date / Time Rice Allergy Severe ANAPHYLAXIS Verified 05/18/17 13:01 Review of systems: REVIEW OF SYSTEMS: - Constitutional Constitutional: Present: Fatigue. Absent: syncope, anorexia, night sweats - EENT Eyes: Absent: blurry vision, loss of vision, diplopia Ears: Absent: decreased hearing, ear pain, ear discharge - Cardiovascular Cardiovascular: Denies chest pain with exertion. 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 Denies edema, palpitations. Absent: chest pain with deep breath, claudication - Respiratory Respiratory: Present: CROWDER, denies cough. Absent: wheezing, hemoptysis, change in phlegm color - Gastrointestinal Gastrointestinal: Present: constipation. Absent: abdominal pain, hematemesis , hematochezia, melena, change in bowel habits, nausea - Genitourinary Genitourinary: Absent: difficulty urinating, dysuria, urinary hesitancy, flank pain - Musculoskeletal Musculoskeletal: Present: back pain Absent: joint swelling, muscle cramps, muscle weakness - Neurological Neurological: Present: Poor gait without frequent falls. Absent: dizziness, hemiparesis - Psychiatric Psychiatric: Absent: anxiety, depression, difficulty concentrating - Endocrine Endocrine: Present: fatigue. Absent: cold intolerance, heat intolerance, polyuria, polyphagia, polydipsia - Hematologic/Lymphatic Hematologic/Lymphatic: Present: easy bruising. Absent: easy bleeding -Integumentary Integumentary: Absent: lesions, rashes, skin breakdown Medical,Surgical,& Family Hx - Medical History Cardio: History of: Cardiac Dysrhythmia (A-FIB), CHF (echocardiogram of 2014 reveals EF of 50%, mild LVH, mild hypokinesis), Hypertension Respiratory: History of: Bronchitis, COPD Gastrointestinal: No history of: GERD Musculoskeletal: History of: Musculoskeletal Problems (hx fx right hip) Other: History of: Miscellaneous Medical Problems (History of Lyme disease) - Surgical History Cardiac Surgeries: Patient Denies: Cardiac Catheterization, Cardiac Surgery HEENT Surgeries: Surgical HX of: Eye Surgery Orthopedic Surgeries: Surgical HX of;: Total Hip Replacement (right) - Family History Family History: Reports;: Family Hypertension - Social History Smoking Status: Never smoker Have you smoked in the last 12 months: No Frequency of Alcohol Use: None Type of Drug Use: None Cardiology Physical Exam - Constitutional Vitals: Vital Signs Temp Pulse Resp BP Pulse Ox 96.5 F L 82 16 106/60 90 L 05/22/17 04:00 05/22/17 06:26 05/22/17 05:38 05/22/17 04:00 05/22/17 04:00 Intake and Output 05/21/17 05/22/17 05/22/17 23:59 07:59 15:59 Intake Total Output Total 400 / 400 Balance -315 / -315 Intake: IV Cardizem Inj 100 mg In Ns 100 ml @ 10 MG/HR 10 mls /hr IV TITRATE ADOLFO Rx#: [id number] Oral 0 / 0 Output: Urine 400 / 400 Other: Voiding Method Urinal Weight 97.664 kg 96.275 kg Patient Weight 05/22/17 23:59 Weight 96.275 kg Exam: General: [Appears well with no apparent distress.] [Pleasant and cooperative. ] [Appears comfortable.] HEENT: [Hard of hearing despite wearing hearing aids. Bilateral arcus, normocephalic, atraumatic. Mucous membranes moist. No jaundice noted. Conjunctiva moist and clear, sclerae anicteric] Neck: No JVD/HJR, no thyromegaly or lymphadenopathy noted. No carotid bruit appreciated Cardiac: [Regular rate and rhythm.] [No murmur rub or gallop.] PMI is nondisplaced. Lungs: [Clear to auscultation without accessory muscle use to assist the respiratory pattern.] Oxygen in use via nasal cannula Abdomen: Soft, bowel sounds normoactive. Nontender and nondistended. No abdominal bruit or thrill noted. No masses noted. Musculoskeletal: No fluid collection. Decreased range of motion is noted. Extremities: No clubbing, cyanosis noted. [ No edema noted.] Upper extremity pulses 2+. Lower extremity pulses 2+. Capillary refill less than 3 seconds. Skin: No unusual lesions or rashes. No skin breakdown appreciated. Neuro: Awake, alert and oriented 3. Moves all extremities well without hemiparesis or paralysis. No essential tremor is appreciated. Result/EKG - Labs CBC & BMP: 05/21/17 22:09 05/21/17 22:09 Lab Results: I have reviewed the past 24 hour labs Labs: Laboratory Results - last 24 hr 05/21/17 05/21/17 05/22/17 22:09 22:09 07:19 WBC 7.4 RBC 5.01 Hgb 15.6 Hct 44.8 MCV 89.4 MCH 31 MCHC 34.8 RDW 13.8 Plt Count 196 MPV 10.1 Neut % (Auto) 62.2 Lymph % (Auto) 21.4 [place] % (Auto) 12.3 Eos % (Auto) 1.8 Baso % (Auto) 1.4 H Neut # (Auto) 4.6 Lymph # (Auto) 1.6 [place] # (Auto) 0.9 H Eos # (Auto) 0.1 Baso # (Auto) 0.1 Immature Gran % 0.9 Nucleated RBC % 0.0 Immature Gran # 0.07 Nucleated RBCs # 0.00 INR PT Patient/Control Mix Sodium 142 Potassium 4.2 Chloride 111 H Carbon Dioxide 23 Anion Gap 12.2 BUN 24 H Creatinine 1.20 GFR Calculation 63 BUN/Creatinine Ratio 20.00 Glucose 113 H Calculated Osmolality 287.1 Calcium 8.9 Magnesium 2.4 Total Creatine Kinase 56 87 D CK-MB (CK-2) 1.4 4.3 H Troponin I 0.120 H 0.510 H D 05/22/17 08:08 WBC RBC Hgb Hct MCV MCH MCHC RDW Plt Count MPV Neut % (Auto) Lymph % (Auto) [place] % (Auto) Eos % (Auto) Baso % (Auto) Neut # (Auto) Lymph # (Auto) [place] # (Auto) Eos # (Auto) Baso # (Auto) Immature Gran % Nucleated RBC % Immature Gran # Nucleated RBCs # INR 2.4 PT Patient/Control Mix 26.4 D Sodium Potassium Chloride Carbon Dioxide Anion Gap BUN Creatinine GFR Calculation BUN/Creatinine Ratio Glucose Calculated Osmolality Calcium Magnesium Total Creatine Kinase CK-MB (CK-2) Troponin I - Diagnostic Findings Procedure: Chest x-ray: pending - EKG EKG results: interpreted by me EKG shows: atrial fibrillation <Eduardo Dykes - Last Filed: 05/22/17 13:34> History of Present Illness History of present illness: Mr. Rader is a 86 year old male Cardiology Physical Exam - Constitutional Vitals: Vital Signs Temp Pulse Resp BP Pulse Ox 97.5 F L 85 20 101/59 100 05/22/17 12:00 05/22/17 12:00 05/22/17 12:00 05/22/17 12:00 05/22/17 12:00 Intake and Output 05/21/17 05/22/17 05/22/17 23:59 07:59 15:59 Intake Total 85 / 85 20 / 20 Output Total 400 / 400 Balance -315 / -315 Intake: IV / 85 20 / 20 Cardizem Inj 100 mg In Ns 85 20 / 20 100 ml @ 10 MG/HR 10 mls /hr IV TITRATE ADOLFO Rx#: [id number] Oral 0 / 0 Output: Urine 400 / 400 Other: Voiding Method Urinal Weight 97.664 kg 96.275 kg Patient Weight 05/22/17 23:59 Weight 96.275 kg Result/EKG - Labs CBC & BMP: 05/21/17 22:09 05/21/17 22:09 Labs: Laboratory Results - last 24 hr 05/21/17 05/21/17 05/22/17 22:09 22:09 07:19 WBC 7.4 RBC 5.01 Hgb 15.6 Hct 44.8 MCV 89.4 MCH 31 MCHC 34.8 RDW 13.8 Plt Count 196 MPV 10.1 Neut % (Auto) 62.2 Lymph % (Auto) 21.4 [place] % (Auto) 12.3 Eos % (Auto) 1.8 Baso % (Auto) 1.4 H Neut # (Auto) 4.6 Lymph # (Auto) 1.6 [place] # (Auto) 0.9 H Eos # (Auto) 0.1 Baso # (Auto) 0.1 Immature Gran % 0.9 Nucleated RBC % 0.0 Immature Gran # 0.07 Nucleated RBCs # 0.00 INR PT Patient/Control Mix Sodium 142 Potassium 4.2 Chloride 111 H Carbon Dioxide 23 Anion Gap 12.2 BUN 24 H Creatinine 1.20 GFR Calculation 63 BUN/Creatinine Ratio 20.00 Glucose 113 H Calculated Osmolality 287.1 Calcium 8.9 Magnesium 2.4 Total Creatine Kinase 56 87 D CK-MB (CK-2) 1.4 4.3 H Troponin I 0.120 H 0.510 H D Free T4 TSH 3rd Generation 05/22/17 05/22/17 07:19 08:08 WBC RBC Hgb Hct MCV MCH MCHC RDW Plt Count MPV Neut % (Auto) Lymph % (Auto) [place] % (Auto) Eos % (Auto) Baso % (Auto) Neut # (Auto) Lymph # (Auto) [place] # (Auto) Eos # (Auto) Baso # (Auto) Immature Gran % Nucleated RBC % Immature Gran # Nucleated RBCs # INR 2.4 PT Patient/Control Mix 26.4 D Sodium Potassium Chloride Carbon Dioxide Anion Gap BUN Creatinine GFR Calculation BUN/Creatinine Ratio Glucose Calculated Osmolality Calcium Magnesium Total Creatine Kinase CK-MB (CK-2) Troponin I Free T4 1.15 TSH 3rd Generation 1.250
[2017-05-22] MEDS: METOPROLOL TARTRATE 50 MG TABLET PO SCH ×2 (09:22→21:28)
[2017-05-22] MEDS: predniSONE 10 MG TABLET PO SCH ×2 (09:51→21:29)
[2017-05-22] MEDS: PANTOPRAZOLE 40 MG TABLET PO SCH (09:51)
[2017-05-22] MEDS: AZITHROMYCIN 250 MG TABLET PO SCH (09:51)
[2017-05-22] MEDS: FEXOFENADINE 180 MG TABLET PO SCH (09:51)
[2017-05-22] MEDS: DILTIAZEM CD 300 MG CAPSULE PO SCH (10:06)
[2017-05-22] MEDS: FLUTICASONE 50 MCG NASAL SPRAY 16 GM BOTTLE BOTH NARES SCH (10:07)
[2017-05-22] MEDS: BUDESONIDE/FORMOTEROL 160-4.5 INHALER 6 GM INH SCH ×2 (10:07→21:26)
[2017-05-22] MEDS ORDERED: FUROSEMIDE 40 MG/4 ML VIAL IV ONE (11:39)
[2017-05-22 12:34] LABS: Free T4 (Free Thyroxine) 1.15 NG/DL (0.76-1.46); Thyroid Stimulating Hormone 1.25 uIU/ml (0.358-3.74)
[2017-05-22] MEDS ORDERED: ALBUTEROL 2.5 MG/3 ML NEB RESP TX PRN (13:00)
[2017-05-22 16:16] LABS: Troponin I Only 0.258 NG/ML (0.00-0.045)
[2017-05-23 05:25] LABS: Basophils % 0.5 % (0.0-0.8); Eosinophils % 0.4 % (0.00-10.9); Hematocrit 42.6 VOL% (42.0-52.0); Hemoglobin 14.5 GM/DL (14.0-18.0); Immature Granulocytes % 0.7 %; Immature Granulocytes Absolute 0.06 #; Lymphocytes # 1.2 10*3/uL (1.4-4.0); Lymphocytes % 15.4 % (21.2-54.2); Mean Corpuscular Hemoglobin 31 PG (27-34); Mean Corpuscular Volume 90.3 FL (87-102); Mean Platelet Volume 10.4 FL (9.6-12.0); Monocytes # 0.5 10*3/uL (0.11-0.8); Monocytes % 5.7 % (1.7-12.7); Neutrophils # 6.2 10*3/uL (1.4-7.4); Neutrophils % 77.3 % (38.7-73.9); Platelet Count 186 T/CUMM (130-400); Red Blood Count 4.72 MC/CUMM (3.8-5.5); Red Cell Distribution Width 13.5 % (9.3-17.3); White Blood Count 8.1 T/CUMM (4-12)
[2017-05-23 05:57] LABS: Calcium 8.5 MG/DL (8.5-10.1); Magnesium 2.4 MG/DL (1.8-2.4); Osmolality,Calculated 283.3 MOS/KG (273-304); Potassium 4.5 MMOL/L (3.5-5.1)
[2017-05-23] MEDS: AZITHROMYCIN 250 MG TABLET PO SCH (08:45)
[2017-05-23] MEDS: FEXOFENADINE 180 MG TABLET PO SCH (08:45)
[2017-05-23] MEDS: predniSONE 10 MG TABLET PO SCH (08:45)
[2017-05-23] MEDS: PANTOPRAZOLE 40 MG TABLET PO SCH (08:45)
[2017-05-23] MEDS: METOPROLOL TARTRATE 50 MG TABLET PO SCH (08:45)
[2017-05-23] MEDS: FLUTICASONE 50 MCG NASAL SPRAY 16 GM BOTTLE BOTH NARES SCH (08:45)
[2017-05-23] MEDS: DILTIAZEM CD 300 MG CAPSULE PO SCH (08:45)
[2017-05-23] MEDS: BUDESONIDE/FORMOTEROL 160-4.5 INHALER 6 GM INH SCH (08:46)
--- NOTE | 2017-05-23 11:39 | Discharge Summary ---
Hospital Course - Hospital Course Hospital Course: ROLL FILLER: DR. MALHOTRA PCP: DR. VINES Mr. Rader, 86WM, followed by Dr. Malhotra. Risk factors include: advanced age , hypertension, sedentary lifestyle. History of chronic atrial fibrillation ( takes Coumadin for stroke prevention), COPD. Although the admission ER note states he has had mechanical aortic valve replacement he has NOT had this procedure. According to September [address] Malhotra, patient has a history of abnormal perfusion scan but has declined cardiac catheterization on several occasions. Last echo March 15, 2017: EF 40%, moderate aortic valve sclerosis with minimal stenosis. Arrived to the ED of [facility] May 21, 2017 with complaints of chest pain which began around 1830. Patient was beginning to mow his lawn when he began to experience a chest pain described as "tight" in the center of his chest without radiation. He became diaphoretic but denies nausea or vomiting. The chest discomfort lasted approximately 10-15 minutes and resolved on its own. He can identify no aggravating nor any alleviating factors, currently chest pain-free. Unable to write the discomfort on a scale of 1-10. First set of cardiac biomarkers negative, EKG on arrival revealed atrial fibrillation with rapid ventricular response. He was given IV Diltiazem and his heart rate has improved. INR 2.3. Chest x-ray stable. Of note, the patient was in the emergency department approximately 3 days prior to this admission for sinus congestion. He is currently taking P. rednisone for URI. Dr. Dykse is present, has seen and examined the patient. At this point, we will not repeat echo as there is a recent echo. Patient is having no more chest pain and actually states that he feels relatively well. We will restart his home medications with the exception of Coumadin. He is INR is therapeutic at this point and will hold until further plan of care can be delineated. Transition IV Diltiazem to oral Diltiazem. Continue to cycle his cardiac biomarkers and EKG. Patient would like to be discharged home and will continue to follow through the afternoon with hopeful plans on discharging tomorrow if he continues to improve. We can arrange for follow-up with Dr. Malhotra within a few weeks at discharge. MAY 23, 2017: Mr. Rader is feeling good this morning and would like to be discharged. Denies chest pain, heaviness or tightness. Heart rate has been well controlled, remains in atrial fibrillation off IV Diltiazem. Metoprolol succinate initiated at this point. Dr. Dykes has seen patient, reviewed labs. Troponin peaked at 0.5 the patient was in A. fib with RVR on admission and this is most likely related to uncontrolled heart rate. Will discharge home on Toprol-XL 25 mg orally twice daily with Lexiscan stress testing next week, follow-up appoint with Dr. Malhotra in approximately 2 weeks. ASSESSMENT/PLAN: 1. CHEST PAIN -possibly related to A. fib with RVR. This is not NSTEMI. 2. ATRIAL FIB WITH RVR - currently rate controlled ON CCB and BB. 3. HYPERTENSION - usually well controlled. Will adjust medications accordingly during hospital stay. 4. COPD - improved after restarting home meds. 5. CARDIOMYOPATHY - etiology undetermined, EF 40%. Has previously declined invasive work-up and therefor unable to determine. 6. HIGH RISK MEDICATION - Coumadin for stroke prevention continues Cardiac discharge medications include the following: Diltiazem CD 300 mg orally daily Lasix 20 mg orally daily Metoprolol Succinate 25 mg orally twice daily (new) Coumadin 5 mg orally Saturday Coumadin 7.5 mg orally Saturday, Saturday, Saturday, Saturday, , Saturday PT/INR next week at [facility] when undergoing stress test He will resume his other preadmission noncardiac medications. - Time spent with patient Time with patient DS: Greater than 30 minutes Diagnosis - Discharge Diagnosis (1) Chest pain Status: Resolved (2) COPD (chronic obstructive pulmonary disease) Status: Chronic (3) High risk medication use Status: Chronic (4) Chronic anticoagulation Status: Chronic (5) Atrial fibrillation with RVR Status: Acute Specialty Discharge - Follow Up or Referrals Follow up with: Leroy Malhotra MD [Physician] - (Lexiscan stress test [facility] next week RE: chest pain, cardiomyopathy. PT/INR. BMP, Mg at that visit and send results to Dr. Malhotra. Then, F/U appointment with Dr. Malhotra the following week. ) Discharge Plan - Discharge Data Disposition: Disch To Home/Self Care Condition at Discharge: Stable Discharge Diet: heart healthy Activity: resume usual activities as tolerated Hygiene: no restrictions Weight Bearing at Discharge: full weight bearing Driving: not until seen by doctor Contact your physician if you experience:: fever over 101, Difficulty voiding, Redness or swelling, Nausea/Vomiting, Shortness of breath, Bleeding, pain uncontrolled by pain medications - Discharge Medications New Metoprolol Succinate Xl [Toprol Xl] 25 mg PO BID #60 tablet Continue Furosemide Tab [Lasix Tab] 20 mg PO QPM dilTIAZem HCl [Cartia XT] 300 mg PO DAILY Warfarin [Coumadin] 7.5 mg PO SUMOTUWETHSA Albuterol Inhaler [Proventil Inhaler] 2 puff INH Q6H PRN #1 inhaler PRN Reason: Shortness Of Breath/Wheezing Fluticasone Propionate [Flonase Allergy Relief] 1 spray BOTH NARES DAILY #10 ml Cefuroxime Tab [Ceftin] 250 mg PO BID #14 tablet Gluc Vann/Chondro Vann A/Vit C/Mn [Glucosamine Chondroitin Tab] 1 tablet PO DAILY Azithromycin Tab [Zithromax Tab] 250 mg PO DAILY #6 tablet Fexofenadine [Diane] 180 mg PO DAILY #10 tablet guaiFENesin/DM ER 600-30 [Mucinex Dm 600-30 MG] 1 tablet PO BID #20 tablet Budesonide/Formoterol 160-4.5 [Symbicort 160-4.5] 2 puff INH BID #2 inhaler Warfarin [Coumadin] 5 mg PO FR Discontinued Metoprolol Tartrate Tab [Lopressor Tab] 50 mg PO DAILY - Follow Up or Referral Follow Up: Leroy Malhotra MD [Physician] - (Lexiscan stress test [facility] next week RE: chest pain, cardiomyopathy. PT/INR at that visit and send results to Dr. Malhotra. Then, F/U appointment with Dr. Malhotra the following week. ) - Forms/Instructions Additional Discharge Instructions: Please schedule patient for a Mima scan stress test at [facility] next week RE: chest pain, cardiomyopathy. At that visit please obtain PT/INR, BMP, magnesium. Then, please make an appointment to see Dr. Malhotra the following week to discuss results. Exam - Constitutional Vitals: Period Temp Pulse Resp BP Sys/Miles Pulse Ox Last 24 Hr 97.3 F-98.4 F 75-88 18-22 101-136/57-73 92-100 Exam: Exam: General: [Appears well with no apparent distress.] [Pleasant and cooperative. ] [Appears comfortable.] HEENT: [Hard of hearing despite wearing hearing aids. Bilateral arcus, normocephalic, atraumatic. Mucous membranes moist. No jaundice noted. Conjunctiva moist and clear, sclerae anicteric] Neck: No JVD/HJR, no thyromegaly or lymphadenopathy noted. No carotid bruit appreciated Cardiac: [Regular rate and rhythm.] [No murmur rub or gallop.] PMI is nondisplaced. Lungs: [Clear to auscultation without accessory muscle use to assist the respiratory pattern.] Oxygen in use via nasal cannula Abdomen: Soft, bowel sounds normoactive. Nontender and nondistended. No abdominal bruit or thrill noted. No masses noted. Musculoskeletal: No fluid collection. Decreased range of motion is noted. Extremities: No clubbing, cyanosis noted. [ No edema noted.] Upper extremity pulses 2+. Lower extremity pulses 2+. Capillary refill less than 3 seconds. Skin: No unusual lesions or rashes. No skin breakdown appreciated. Neuro: Awake, alert and oriented 3. Moves all extremities well without hemiparesis or paralysis. No essential tremor is appreciated. Discharge Results Labs on day of discharge: Labs from last 24 hours 05/23/17 05/23/17 05/22/17 04:26 04:26 Unknown WBC 8.1 RBC 4.72 Hgb 14.5 Hct 42.6 MCV 90.3 MCH 31 MCHC 34.0 RDW 13.5 Plt Count 186 MPV 10.4 Neut % (Auto) 77.3 H Lymph % (Auto) 15.4 L [place] % (Auto) 5.7 Eos % (Auto) 0.4 Baso % (Auto) 0.5 Neut # (Auto) 6.2 Lymph # (Auto) 1.2 L [place] # (Auto) 0.5 Eos # (Auto) 0.0 Baso # (Auto) 0.0 Immature Gran % 0.7 Nucleated RBC % 0.0 Immature Gran # 0.06 Nucleated RBCs # 0.00 Sodium 141 Potassium 4.5 Chloride 107 Carbon Dioxide 27 Anion Gap 11.5 BUN 20 H Creatinine 1.10 GFR Calculation 75 BUN/Creatinine Ratio 18.00 Glucose 107 H Calculated Osmolality 283.3 Calcium 8.5 Magnesium 2.4 Total Creatine Kinase 60 D CK-MB (CK-2) 3.5 Troponin I 0.258 H D Free T4 TSH 3rd Generation 05/22/17 07:19 WBC RBC Hgb Hct MCV MCH MCHC RDW Plt Count MPV Neut % (Auto) Lymph % (Auto) [place] % (Auto) Eos % (Auto) Baso % (Auto) Neut # (Auto) Lymph # (Auto) [place] # (Auto) Eos # (Auto) Baso # (Auto) Immature Gran % Nucleated RBC % Immature Gran # Nucleated RBCs # Sodium Potassium Chloride Carbon Dioxide Anion Gap BUN Creatinine GFR Calculation BUN/Creatinine Ratio Glucose Calculated Osmolality Calcium Magnesium Total Creatine Kinase CK-MB (CK-2) Troponin I Free T4 1.15 TSH 3rd Generation 1.250 - Imaging and Cardiology Cardiology Procedure: report reviewed by me Procedure: Chest x-ray: report reviewed by DS: Provider Date of admission: 05/21/17 22:47 Primary care physician: . No PCP Attending physician on admission: Blair Polo MD Discharging clinician: Lisseth Shelley NP Expected date of discharge: 05/23/17
[2017-05-23 12:14] VITALS: BP 123/70
[2017-05-23] MEDS ORDERED: METOPROLOL SUCCINATE XL 25 MG TABLET PO SCH (21:00)
[2017-05-24] MEDS ORDERED: FUROSEMIDE 20 MG TABLET PO SCH (09:00)
== END 2017-05-23 12:44 | disposition home or self-care (01) | DRG 310 ==
LOC: EDUNIT# → EDBD → N.ED 21:34 → N.EDINP 22:47 → N.TELEN 23:48
PROVIDERS: ADMIT Internal Medicine Cardiovascular Disease; ATTEND Internal Medicine Cardiovascular Disease

== ENCOUNTER 2017-05-29 19:45 | Inpatient (IN) ==
[2017-05-29] MEDS ORDERED: MORPHINE 2 MG/1 ML SYRINGE IV STA (20:09)
[2017-05-29] MEDS ORDERED: ONDANSETRON 4 MG/2 ML VIAL IV STA (20:09)
[2017-05-29] MEDS ORDERED: ASPIRIN 325 MG TABLET PO STA (20:09)
[2017-05-29] MEDS ORDERED: NITROGLYCERIN 2% OINT 1 INCH/GM PACK TOP STA (20:09)
[2017-05-29] MEDS ORDERED: ALUM/MAG/SIMETH/LIDO VISC 1:1 30 ML BOTTLE PO STA (20:09)
[2017-05-29] MEDS ORDERED: DILTIAZEM 50 MG/10 ML VIAL IV STA (20:09)
[2017-05-29 20:17] LABS: Basophils # 0.1 10*3/uL (0.0-0.2); Basophils % 1.6 % (0.0-0.8); Eosinophils # 0.2 10*3/uL (0.0-0.87); Eosinophils % 2.3 % (0.00-10.9); Hemoglobin 15.7 GM/DL (14.0-18.0); Immature Granulocytes % 1.1 %; Immature Granulocytes Absolute 0.08 #; Lymphocytes # 2.1 10*3/uL (1.4-4.0); Lymphocytes % 28.5 % (21.2-54.2); Mean Corpuscular HGB Conc 34.9 GM/DL (32-36); Mean Corpuscular Hemoglobin 32 PG (27-34); Mean Corpuscular Volume 90.2 FL (87-102); Mean Platelet Volume 10.5 FL (9.6-12.0); Monocytes # 0.9 10*3/uL (0.11-0.8); Monocytes % 11.8 % (1.7-12.7); Neutrophils % 54.7 % (38.7-73.9); Platelet Count 187 T/CUMM (130-400); Red Blood Count 4.99 MC/CUMM (3.8-5.5); Red Cell Distribution Width 13.5 % (9.3-17.3); White Blood Count 7.3 T/CUMM (4-12)
[2017-05-29 20:24] LABS: INR 1.8; Magnesium 2.4 MG/DL (1.8-2.4); PT Patient Result 19.8 SECS
[2017-05-29] MEDS ORDERED: NITROGLYCERIN 2% OINT 1 INCH/GM PACK TOP ONE (20:26)
[2017-05-29] MEDS ORDERED: ASPIRIN 325 MG TABLET ONE (20:26)
[2017-05-29] MEDS ORDERED: ALUM/MAG/SIMETH/LIDO VISC 1:1 30 ML BOTTLE PO ONE (20:26)
[2017-05-29] MEDS ORDERED: MORPHINE 2 MG/1 ML SYRINGE ONE (20:26)
[2017-05-29] MEDS ORDERED: DILTIAZEM 50 MG/10 ML VIAL IV ONE (20:27)
[2017-05-29] MEDS ORDERED: ONDANSETRON 4 MG/2 ML VIAL ONE (20:27)
[2017-05-29 20:31] LABS: Albumin 3.2 G/DL (3.4-5.0); Bilirubin,Total 0.7 MG/DL (0.2-1.0); Calcium 8.7 MG/DL (8.5-10.1); Total Protein 5.8 G/DL (6.4-8.3)
--- NOTE | 2017-05-29 20:34 | Emergency Department Note ---
Josh Gallardo Hilary, am scribing for, and in the presence of, Arian Parker MD 20:10. Keith Gallardo Charles R, MD, personally performed the services described in this documentation, ascribed by Sada Moreno in my presence, and it is both accurate and complete . Arrival - Arrival Chief Complaint: Chest Pain ED Nursing Triage Note: Pt arrives via ems from home with complaints of chest pain that started while watching the news. Pt has history of angina and afib. Pt was seen yesterday and had a stress test with cardiology. PT states that pain has resolved at time of triage. 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 Pts reports that he was discharged from the hospital 4 days ago for c/o chest pain. Pt has history of angina and afib. Pt was seen yesterday and had a stress test with cardiology. Pt states that his pain is no resolved. He confirms chest pain and SOB during the time of symptoms. No other complaints or problems stated in the ED. Onset (ago): minute(s) Consistency: now resolved Severity: moderate Severity scale (1-10): 2 Quality: sharp Allergies/Adverse Reactions: Allergies Allergy/AdvReac Type Severity Reaction Status Date / Time Rice Allergy Severe ANAPHYLAXIS Verified 05/18/17 13:01 Home Medications: Home Medications Medication Instructions Recorded Confirmed Type Furosemide Tab [Lasix Tab] 20 mg PO QPM 05/20/15 05/29/17 History Albuterol Inhaler [Proventil 2 puff INH Q6H PRN #1 inhaler 02/02/17 05/29/17 Rx Inhaler] Fluticasone Propionate [Flonase 1 spray BOTH NARES DAILY #10 ml 02/02/17 Rx Allergy Relief] Warfarin [Coumadin] 7.5 mg PO SUMOTUWETHSA 02/02/17 05/29/17 History dilTIAZem HCl [Cartia XT] 300 mg PO DAILY 02/02/17 05/29/17 History guaiFENesin/DM ER 600-30 [Mucinex 1 tablet PO BID #20 tablet 02/02/17 05/29/17 Rx Dm 600-30 MG] Budesonide/Formoterol 160-4.5 2 puff INH BID #2 inhaler 02/09/17 05/29/17 Rx [Symbicort 160-4.5] Cefuroxime Tab [Ceftin] 250 mg PO BID #14 tablet 02/09/17 05/29/17 Rx Gluc Vann/Chondro Vann A/Vit C/Mn 1 tablet PO DAILY 02/09/17 05/29/17 History [Glucosamine Chondroitin Tab] Warfarin [Coumadin] 5 mg PO FR 02/09/17 05/29/17 History Azithromycin Tab [Zithromax Tab] 250 mg PO DAILY #6 tablet 05/18/17 05/29/17 Rx Fexofenadine [Diane] 180 mg PO DAILY #10 tablet 05/18/17 05/29/17 Rx Metoprolol Succinate Xl [Toprol Xl] 25 mg PO BID #60 tablet 05/23/17 05/29/17 Rx Review of System - Review of System 12 point system: reviewed and no additional remarkable complaints except as stated - Review of System Constitutional: Absent: fever Cardiovascular: Present: chest pain, dyspnea on exertion (SOB) Medical,Surgical,& Family Hx - Medical History Cardio: History of: Cardiac Dysrhythmia (A-FIB), CHF (echocardiogram of 2014 reveals EF of 50%, mild LVH, mild hypokinesis), CAD, Hypertension Respiratory: History of: Bronchitis, COPD Gastrointestinal: No history of: GERD Musculoskeletal: History of: Musculoskeletal Problems (hx fx right hip) Other: History of: Miscellaneous Medical Problems (History of Lyme disease) - Surgical History Cardiac Surgeries: Patient Denies: Cardiac Catheterization, Cardiac Surgery HEENT Surgeries: Surgical HX of: Eye Surgery Orthopedic Surgeries: Surgical HX of;: Total Hip Replacement (right) - Family History Family History: Reports;: Family Hypertension - Social History Smoking Status: Never smoker Frequency of Alcohol Use: None Type of Drug Use: None Exam Vital Signs: Vital Signs Temperature 97.7 F 05/29/17 19:45 Pulse Rate 96 H 05/29/17 21:38 Respiratory Rate 20 05/29/17 21:38 Blood Pressure 135/78 05/29/17 21:38 O2 Sat by Pulse Oximetry 96 05/29/17 21:38 - General General appearance: alert, in no apparent distress - Head Head exam: Present: atraumatic, normocephalic - Eye Eye exam: Present: normal appearance, PERRL, EOMI - ENT ENT exam: Present: mucous membranes moist, TM's normal bilaterally. Absent: mucous membranes dry - Neck Neck exam: Present: full ROM, trachea midline. Absent: tenderness - Chest Chest inspection: Present: symmetric chest wall rise. Absent: tenderness - Respiratory Respiratory exam: Present: rales, rhonchi, other (SOB) - Cardiovascular Cardiovascular exam: Present: tachycardia, irregular rhythm (A.fib with RVR), normal heart sounds. Absent: murmur, rubs, gallop - Abdominal Exam Abdominal exam: Present: soft, hypoactive bowel sounds. Absent: distention - Extremities Exam Extremities exam: Present: full ROM, pedal edema (+2). Absent: tenderness - Back Exam Back exam: Present: full ROM. Absent: tenderness - Neurological Exam Neurological exam: Present: alert, oriented X3, CN II-XII intact. Absent: motor sensory deficit - Psychiatric Psychiatric exam: Present: normal affect, normal mood - Skin Skin exam: Present: warm, dry, intact, normal color. Absent: rash Course - Consultations Consultation #1: Dr. Metzger will admit patient Time: 21:35 Results - Labs CBC & BMP: 05/29/17 20:01 05/29/17 20:01 Lab Results: I have reviewed the patients labs Labs: Laboratory Tests 05/29/17 05/29/17 05/29/17 20:01 20:01 20:01 WBC 7.3 RBC 4.99 Hgb 15.7 Hct 45.0 Plt Count 187 Baso % (Auto) 1.6 H [place] # (Auto) 0.9 H INR PT Patient/Control Mix Sodium 143 Potassium 4.0 Chloride 109 H Carbon Dioxide 25 BUN 23 H Glucose 120 H Troponin I 0.133 H Total Protein 5.8 L Albumin 3.2 L 05/29/17 20:01 WBC RBC Hgb Hct Plt Count Baso % (Auto) [place] # (Auto) INR 1.8 PT Patient/Control Mix 19.8 D Sodium Potassium Chloride Carbon Dioxide BUN Glucose Troponin I Total Protein Albumin - Diagnostic Findings Procedure: Chest x-ray: report reviewed by me (Continued mild cardiomegaly. Borderline pulmonary venous hypertension appearance. Otherwise unchanged) Disposition Clinical Impression: Chest pain, Chronic atrial fibrillation, Atrial fibrillation with RVR, Elevated troponin, COPD (chronic obstructive pulmonary disease), Chronic anticoagulation Case discussed with: patient, patient's family Disposition: Still a Patient Condition: Stable Time of Disposition: 21:36
--- NOTE | 2017-05-29 20:36 | XRay Report ---
History: Chest pain Date: 05/29/2017 Study: Chest x-ray AP portable Comparison exam: May 22, 2017 There is continued mild cardiomegaly. The mediastinal contour is unchanged. There is mild aortic arch calcification. The pulmonary vasculature is borderline prominent. There is chronic mild elevation of the right hemidiaphragm. There is no melchor pneumonia or gross pleural effusion. Osseous structures are unchanged. Impression: Continued mild cardiomegaly. Borderline pulmonary venous hypertension appearance. Otherwise unchanged PROCEDURE INTERPRETED AT [facility] DEPARTMENT OF RADIOLOGY Final Report Signed by: Dr. Lina Gonsales
[2017-05-30] MEDS ORDERED: ALBUTEROL/IPRATROPIUM 3 ML NEB RESP TX PRN (00:26)
[2017-05-30] MEDS ORDERED: POTASSIUM CHLORIDE 20 MEQ TABLET PO PRN (00:26)
[2017-05-30] MEDS ORDERED: MORPHINE 2 MG/1 ML SYRINGE IV PRN (00:26)
[2017-05-30] MEDS ORDERED: SODIUM CHLORIDE 0.9% 1,000 ML IV SCH (00:26)
[2017-05-30] MEDS ORDERED: ALBUTEROL 2.5 MG/3 ML NEB RESP TX PRN (00:26)
[2017-05-30] MEDS ORDERED: ONDANSETRON 4 MG/2 ML VIAL IV PRN (00:26)
[2017-05-30] MEDS ORDERED: MAGNESIUM SULF RIDER 4 GM in PREMIX 1 EACH IV PRN (00:26)
[2017-05-30] MEDS ORDERED: GLUCAGON 1 MG VIAL IM PRN (00:26)
[2017-05-30] MEDS ORDERED: MAGNESIUM SULF RIDER 2 GM in PREMIX 1 EACH IV PRN ×2 (00:26→07:49)
[2017-05-30] MEDS ORDERED: DEXTROSE 50% 25 GM/50 ML VIAL IV PRN (00:26)
--- NOTE | 2017-05-30 02:52 | EKG Report ---
Stationary ECG Study [facility] Test Date: 05/30/2017 12:36:30 AM Pat Name: ELLIE LASSITER Department: Room: 262 Gender: M Population Health Manager: : 1930 Requested by: Arian Loya Order Number: [id number] Reading MD: KIRBY PEREZ Intervals [place] Rate: 101 P: 999 AL: 0 QRS: -67 QRSD: 129 T: 68 QT: 377 QTc: 435 Interpretive Statements ATRIAL FIBRILLATION WITH RAPID VENTRICULAR RESPONSE LEFT AXIS DEVIATION NONSPECIFIC INTRAVENTRICULAR CONDUCTION DELAY ABNORMALITY Electronically Signed On 06-01-17 14:01:19 CDT by KIRBY PEREZ [email or web address]
[2017-05-30 03:06] LABS: INR 1.8; PT Patient Result 20.3 SECS
[2017-05-30 03:08] LABS: Basophils # 0.1 10*3/uL (0.0-0.2); Basophils % 1.3 % (0.0-0.8); Eosinophils # 0.1 10*3/uL (0.0-0.87); Hematocrit 41.1 VOL% (42.0-52.0); Hemoglobin 14.2 GM/DL (14.0-18.0); Immature Granulocytes % 0.9 %; Immature Granulocytes Absolute 0.06 #; Lymphocytes # 1.8 10*3/uL (1.4-4.0); Lymphocytes % 25.3 % (21.2-54.2); Mean Corpuscular HGB Conc 34.5 GM/DL (32-36); Mean Corpuscular Hemoglobin 31 PG (27-34); Mean Corpuscular Volume 90.5 FL (87-102); Mean Platelet Volume 10.9 FL (9.6-12.0); Monocytes # 0.9 10*3/uL (0.11-0.8); Monocytes % 13.2 % (1.7-12.7); Neutrophils % 57.3 % (38.7-73.9); Platelet Count 183 T/CUMM (130-400); Red Blood Count 4.54 MC/CUMM (3.8-5.5); Red Cell Distribution Width 13.6 % (9.3-17.3)
[2017-05-30 03:19] LABS: Albumin 2.9 G/DL (3.4-5.0); Bilirubin,Total 0.6 MG/DL (0.2-1.0); Calcium 8.4 MG/DL (8.5-10.1); Total Protein 5.1 G/DL (6.4-8.3)
[2017-05-30 03:20] LABS: Magnesium 2.5 MG/DL (1.8-2.4); Osmolality,Calculated 289.8 MOS/KG (273-304); Potassium 3.9 MMOL/L (3.5-5.1); Risk Ratio 5.43; VLDL CHOLESTEROL 23.4 MG/DL
--- NOTE | 2017-05-30 06:03 | EKG Report ---
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
--- NOTE | 2017-05-30 07:43 | XRay Report ---
Exam: XR chest 1V portable Date: 05/30/2017 4:00 AM Indication: Shortness of breath Comparison: 05/29/2017 Technical: AP Findings: Small surgical clip present over the right medial clavicle. Oxygen tubing external cardiac leads are present. Low-volume effusion and atelectatic change present in the right base with some shift of the heart towards the right. No pneumothorax present. Impression: 1. Low volume right effusion and right basilar atelectasis. 2. Cardiac enlargement and ASVD 3. Previous surgical changes right mid clavicle area PROCEDURE INTERPRETED AT [facility] DEPARTMENT OF RADIOLOGY Final Report Signed by: Dr. Desmond Pete
[2017-05-30] MEDS ORDERED: POTASSIUM CHLORIDE RIDER 10 MEQ in PREMIX 1 EACH IV PRN (07:49)
[2017-05-30] MEDS ORDERED: DIAZEPAM 5 MG TABLET PO ONE (07:49)
[2017-05-30] MEDS ORDERED: diphenhydrAMINE CAP 25 MG CAPSULE PO ONE (07:49)
--- NOTE | 2017-05-30 08:00 | Cardiology History & Physical ---
<Lisseth Shelley E - Last Filed: 05/30/17 07:54> Assessment and Plan - Time spent with patient Time spent with patient: Greater than 30 minutes (1) NSTEMI (non-ST elevated myocardial infarction) Status: Acute Assessment and plan: SEE PLAN OF CARE LISTED BELOW Current Visit: Yes (2) Dyslipidemia Status: Chronic Assessment and plan: SEE PLAN OF CARE LISTED BELOW Current Visit: Yes (3) Elevated troponin Status: Acute Assessment and plan: SEE PLAN OF CARE LISTED BELOW Current Visit: Yes (4) Chest pain Status: Acute Assessment and plan: SEE PLAN OF CARE LISTED BELOW Current Visit: No (5) COPD (chronic obstructive pulmonary disease) Status: Chronic Assessment and plan: SEE PLAN OF CARE LISTED BELOW Current Visit: Yes (6) High risk medication use Status: Chronic Assessment and plan: SEE PLAN OF CARE LISTED BELOW Current Visit: No History of Present Illness Chief complaint: CHEST PAIN History of present illness: TECHNICAL RECRUITER: DR. MALHOTRA PCP: DR. MOHINDER Rader, 86WM, followed by Dr. Malhotra. Risk factors include: advanced age , hypertension, sedentary lifestyle. History of chronic atrial fibrillation ( takes Coumadin for stroke prevention), COPD. Although the admission ER note states he has had mechanical aortic valve replacement he has NOT had this procedure. According to September [address] Malhotra, patient has a history of abnormal perfusion scan but has declined cardiac catheterization on several occasions. Last echo March 15, 2017: EF 40%, moderate aortic valve sclerosis with minimal stenosis. Patient had recently been hospitalized for chest pain with a atrial fibrillation and RVR. Patient's heart rate was controlled, he was offered further cardiac workup but he chose to be discharged and follow-up with an outpatient stress test. Patient underwent Lexiscan stress testing 2 days ago at [facility]. Last night, patient began to experience chest pains he describes as heaviness associated with diaphoresis. This was located in the center of his chest without radiation. He was sitting when this occurred. He can identify no aggravating factors nor any alleviating factors. Rates the discomfort as a 7 on a scale of 1-10. He is currently chest pain-free. Cardiac biomarkers are elevated, EKG abnormal. Dr. Metzger is at the bedside and has discussed the need for further workup including cardiac catheterization. Dior's power of attorney general, Lien Rivera, is present and has agreed with Mr. Nicolas's choice to proceed with heart catheterization. INR 1.8, creatinine 1.0. His elevated probable b Of note, the patient was in the emergency department approximately 3 days prior to this admission for sinus congestion. He is currently taking P. rednisone for URI. Dr. Dykes is present, has seen and examined the patient. At this point, we will not repeat echo as there is a recent echo. Patient is having no more chest pain and actually states that he feels relatively well. We will restart his home medications with the exception of Coumadin. He is INR is therapeutic at this point and will hold until further plan of care can be delineated. Transition IV Diltiazem to oral Diltiazem. Continue to cycle his cardiac biomarkers and EKG. Patient would like to be discharged home and will continue to follow through the afternoon with hopeful plans on discharging tomorrow if he continues to improve. We can arrange for follow-up with Dr. Malhotra within a few weeks at discharge. ASSESSMENT/PLAN: 1. CHEST PAIN CONCERNING FOR ANGINA - currently chest pain-free. Cardiac biomarkers elevated indicating NSTEMI. NPO for [facility] this morning. 2. ATRIAL FIB WITH RVR - currently rate controlled. Continue current plan of care. 3. HYPERTENSION - usually well controlled. Will adjust medications accordingly during hospital stay. 4. COPD - restart his numerous inhalers and pulmonary medications. 5. CARDIOMYOPATHY - etiology undetermined, EF 40%. 6. HIGH RISK MEDICATION - Coumadin for stroke prevention for atrial fibrillation. 7. DYSLIPIDEMIA - LDL 116. Continue lipid lowering agent. Home Medications Medication Instructions Recorded Confirmed Type Furosemide Tab [Lasix Tab] 20 mg PO QPM 05/20/15 05/29/17 History Albuterol Inhaler [Proventil 2 puff INH Q6H PRN #1 inhaler 02/02/17 05/29/17 Rx Inhaler] Fluticasone Propionate [Flonase 1 spray BOTH NARES DAILY #10 ml 02/02/17 Rx Allergy Relief] Warfarin [Coumadin] 7.5 mg PO SUMOTUWETHSA 02/02/17 05/29/17 History dilTIAZem HCl [Cartia XT] 300 mg PO DAILY 02/02/17 05/29/17 History guaiFENesin/DM ER 600-30 [Mucinex 1 tablet PO BID #20 tablet 02/02/17 05/29/17 Rx Dm 600-30 MG] Budesonide/Formoterol 160-4.5 2 puff INH BID #2 inhaler 02/09/17 05/29/17 Rx [Symbicort 160-4.5] Cefuroxime Tab [Ceftin] 250 mg PO BID #14 tablet 02/09/17 05/29/17 Rx Gluc Vann/Chondro Vann A/Vit C/Mn 1 tablet PO DAILY 02/09/17 05/29/17 History [Glucosamine Chondroitin Tab] Warfarin [Coumadin] 5 mg PO FR 02/09/17 05/29/17 History Azithromycin Tab [Zithromax Tab] 250 mg PO DAILY #6 tablet 05/18/17 05/29/17 Rx Fexofenadine [Diane] 180 mg PO DAILY #10 tablet 05/18/17 05/29/17 Rx Metoprolol Succinate Xl [Toprol Xl] 25 mg PO BID #60 tablet 05/23/17 05/29/17 Rx Allergies Allergy/AdvReac Type Severity Reaction Status Date / Time Rice Allergy Severe ANAPHYLAXIS Verified 05/18/17 13:01 Review of systems: REVIEW OF SYSTEMS: - Constitutional Constitutional: Present: Fatigue, diaphoresis. Absent: syncope, anorexia, night sweats - EENT Eyes: Absent: blurry vision, loss of vision, diplopia Ears: Present: Decreased hearing. Denies ear pain - Cardiovascular Cardiovascular: Present: chest pain with exertion and at rest. Diaphoresis. Chronic mild dyspnea on exertion. Denies edema, palpitations. - Respiratory Respiratory: Present: Chronic mild CROWDER, denies cough. Absent: wheezing, hemoptysis, change in phlegm color - Gastrointestinal Gastrointestinal: Denies: constipation. Absent: abdominal pain, hematemesis, hematochezia, melena, change in bowel habits, nausea - Genitourinary Genitourinary: Absent: difficulty urinating, dysuria, urinary hesitancy, flank pain - Musculoskeletal Musculoskeletal: Present: back pain Absent: joint swelling, muscle cramps, muscle weakness - Neurological Neurological: Present: normal gait without frequent falls. Absent: dizziness, hemiparesis - Psychiatric Psychiatric: Absent: anxiety, depression, difficulty concentrating - Endocrine Endocrine: Present: fatigue. Absent: cold intolerance, heat intolerance, polyuria, polyphagia, polydipsia - Hematologic/Lymphatic Hematologic/Lymphatic: Present: easy bruising. Absent: easy bleeding -Integumentary Integumentary: Absent: lesions, rashes, skin breakdown Medical,Surgical,& Family Hx - Medical History Cardio: History of: Cardiac Dysrhythmia (A-FIB), Cerebrovascular Disease, CHF ( echocardiogram of 02/01/2015 reveals EF of 50%, mild LVH, mild hypokinesis), Hypertension, Cardiovascular Problems No history of: Aneurysm, Congenital Heart Disease, [place], Pacemaker, PVD, Valvular Heart Disease Neurology: No history of: Brain Aneurysm, Cerebral Hemorrhage, Cerebrovascular Accident , Cerebral Palsy, Dementia, Migraine, Multiple Sclerosis, Parkinson's Disease, Peripheral Neuropathy, Seizures, TIA, Vertigo, Neurologocal Cancer HEENT: History of: Ear Problem Endocrine: History of: Diabetes Mellitus (NIDDM), Endocrine Problems No history of: Dyslipidemia Respiratory: History of: Bronchitis, COPD, Respiratory Problems No history of: Obstructive Sleep Apnea Gastrointestinal: No history of: GERD Musculoskeletal: History of: Musculoskeletal Problems (hx fx right hip) Other: History of: Miscellaneous Medical Problems (History of Lyme disease) - Surgical History Cardiac Surgeries: Patient Denies: Cardiac Catheterization, Cardiac Surgery Thoracic Surgeries: Patient denies;: Organ Transplant, Lobectomy Neurologic Surgeries: Patient denies: Brain Aneurysm, Cerebral Hemorrhage, Neurologic Surgery HEENT Surgeries: Surgical HX of: Eye Surgery Orthopedic Surgeries: Surgical HX of;: Total Hip Replacement (right) - Family History Family History: Reports;: Family Hypertension - Social History Smoking Status: Never smoker Have you smoked in the last 12 months: No Frequency of Alcohol Use: None Type of Drug Use: None Marital Status: Lives With:: Alone Functional capacity: uses cane/walker Cardiology Physical Exam - Constitutional Vitals: Vital Signs Temp Pulse Resp BP Pulse Ox 97.3 F L 110 H 16 101/56 97 05/30/17 03:44 05/30/17 03:44 05/30/17 03:44 05/30/17 03:44 05/30/17 03:44 Intake and Output 05/29/17 05/29/17 05/30/17 15:59 23:59 07:59 Output Total 150 / 150 Balance -150 / -150 Output: Urine 150 / 150 Other: Voiding Method Urinal Weight 93.44 kg 95.368 kg Patient Weight 05/30/17 23:59 Weight 95.368 kg Exam: General: [Appears well with no apparent distress.] [Pleasant and cooperative. ] [Appears comfortable.] HEENT: [Hard of hearing. PERRL, normocephalic, atraumatic. Mucous membranes moist. No jaundice noted. Conjunctiva moist and clear, sclerae anicteric] Neck: No JVD/HJR, no thyromegaly or lymphadenopathy noted. No carotid bruit appreciated Cardiac: [Regular rate and rhythm.] [No murmur rub or gallop.] Lungs: [Clear to auscultation without accessory muscle use to assist the respiratory pattern.] Oxygen in use via nasal cannula Abdomen: Soft, bowel sounds normoactive. Nontender and nondistended. No abdominal bruit or thrill noted. No masses noted. Musculoskeletal: No fluid collection. Decreased range of motion is noted. Extremities: No clubbing, cyanosis noted. [ No edema noted.] Upper extremity pulses 2+. Lower extremity pulses 2+. Right groin pulse 2+. Capillary refill less than 3 seconds. Skin: No unusual lesions or rashes. No skin breakdown appreciated. Neuro: Awake, alert and oriented 3. Moves all extremities well without hemiparesis or paralysis. No essential tremor is appreciated. Result/EKG - Labs CBC & BMP: 05/30/17 02:31 05/30/17 02:31 Lab Results: I have reviewed the past 24 hour labs Labs: Laboratory Results - last 24 hr 05/29/17 05/29/17 05/29/17 20:01 20:01 20:01 WBC 7.3 RBC 4.99 Hgb 15.7 Hct 45.0 MCV 90.2 MCH 32 MCHC 34.9 RDW 13.5 Plt Count 187 MPV 10.5 Neut % (Auto) 54.7 Lymph % (Auto) 28.5 [place] % (Auto) 11.8 Eos % (Auto) 2.3 Baso % (Auto) 1.6 H Neut # (Auto) 4.0 Lymph # (Auto) 2.1 [place] # (Auto) 0.9 H Eos # (Auto) 0.2 Baso # (Auto) 0.1 Immature Gran % 1.1 Nucleated RBC % 0.0 Immature Gran # 0.08 Nucleated RBCs # 0.00 INR PT Patient/Control Mix Sodium 143 Potassium 4.0 Chloride 109 H Carbon Dioxide 25 Anion Gap 13.0 BUN 23 H Creatinine 1.20 GFR Calculation 66 BUN/Creatinine Ratio 19.00 Glucose 120 H Calculated Osmolality 289.0 Calcium 8.7 Magnesium Total Bilirubin 0.70 AST 24 ALT 19 Alkaline Phosphatase 101 Troponin I 0.133 H B-Natriuretic Peptide Total Protein 5.8 L Albumin 3.2 L Globulin 2.6 Albumin/Globulin Ratio 1.2 Triglycerides Cholesterol LDL Cholesterol VLDL Cholesterol HDL Cholesterol Heart Disease Risk Ratio Lipase TSH 3rd Generation 05/29/17 05/29/17 05/29/17 20:01 20:01 20:01 WBC RBC Hgb Hct MCV MCH MCHC RDW Plt Count MPV Neut % (Auto) Lymph % (Auto) [place] % (Auto) Eos % (Auto) Baso % (Auto) Neut # (Auto) Lymph # (Auto) [place] # (Auto) Eos # (Auto) Baso # (Auto) Immature Gran % Nucleated RBC % Immature Gran # Nucleated RBCs # INR 1.8 PT Patient/Control Mix 19.8 D Sodium Potassium Chloride Carbon Dioxide Anion Gap BUN Creatinine GFR Calculation BUN/Creatinine Ratio Glucose Calculated Osmolality Calcium Magnesium 2.4 Total Bilirubin AST ALT Alkaline Phosphatase Troponin I B-Natriuretic Peptide 170 H Total Protein Albumin Globulin Albumin/Globulin Ratio Triglycerides Cholesterol LDL Cholesterol VLDL Cholesterol HDL Cholesterol Heart Disease Risk Ratio Lipase 149.0 TSH 3rd Generation 05/29/17 05/30/17 05/30/17 23:21 02:31 02:31 WBC 7.0 RBC 4.54 Hgb 14.2 Hct 41.1 L MCV 90.5 MCH 31 MCHC 34.5 RDW 13.6 Plt Count 183 MPV 10.9 Neut % (Auto) 57.3 Lymph % (Auto) 25.3 [place] % (Auto) 13.2 H Eos % (Auto) 2.0 Baso % (Auto) 1.3 H Neut # (Auto) 4.0 Lymph # (Auto) 1.8 [place] # (Auto) 0.9 H Eos # (Auto) 0.1 Baso # (Auto) 0.1 Immature Gran % 0.9 Nucleated RBC % 0.0 Immature Gran # 0.06 Nucleated RBCs # 0.00 INR PT Patient/Control Mix Sodium Potassium Chloride Carbon Dioxide Anion Gap BUN Creatinine GFR Calculation BUN/Creatinine Ratio Glucose Calculated Osmolality Calcium Magnesium Total Bilirubin AST ALT Alkaline Phosphatase Troponin I 2.050 H D 3.260 H D B-Natriuretic Peptide Total Protein Albumin Globulin Albumin/Globulin Ratio Triglycerides Cholesterol LDL Cholesterol VLDL Cholesterol HDL Cholesterol Heart Disease Risk Ratio Lipase TSH 3rd Generation 05/30/17 05/30/17 05/30/17 02:31 02:31 02:31 WBC RBC Hgb Hct MCV MCH MCHC RDW Plt Count MPV Neut % (Auto) Lymph % (Auto) [place] % (Auto) Eos % (Auto) Baso % (Auto) Neut # (Auto) Lymph # (Auto) [place] # (Auto) Eos # (Auto) Baso # (Auto) Immature Gran % Nucleated RBC % Immature Gran # Nucleated RBCs # INR PT Patient/Control Mix Sodium 144 Potassium 3.9 Chloride 109 H Carbon Dioxide 28 Anion Gap 10.9 BUN 24 H Creatinine 1.00 GFR Calculation 83 BUN/Creatinine Ratio 24.00 H Glucose 97 Calculated Osmolality 289.8 Calcium 8.4 L Magnesium 2.5 H Total Bilirubin 0.60 AST 31 ALT 16 Alkaline Phosphatase 80 Troponin I B-Natriuretic Peptide 352 H Total Protein 5.1 L Albumin 2.9 L Globulin 2.2 L Albumin/Globulin Ratio 1.3 Triglycerides 117 Cholesterol 190 LDL Cholesterol 116.0 VLDL Cholesterol 23.4 HDL Cholesterol 35 L Heart Disease Risk Ratio 5.43 Lipase TSH 3rd Generation 1.190 05/30/17 02:31 WBC RBC Hgb Hct MCV MCH MCHC RDW Plt Count MPV Neut % (Auto) Lymph % (Auto) [place] % (Auto) Eos % (Auto) Baso % (Auto) Neut # (Auto) Lymph # (Auto) [place] # (Auto) Eos # (Auto) Baso # (Auto) Immature Gran % Nucleated RBC % Immature Gran # Nucleated RBCs # INR 1.8 PT Patient/Control Mix 20.3 Sodium Potassium Chloride Carbon Dioxide Anion Gap BUN Creatinine GFR Calculation BUN/Creatinine Ratio Glucose Calculated Osmolality Calcium Magnesium Total Bilirubin AST ALT Alkaline Phosphatase Troponin I B-Natriuretic Peptide Total Protein Albumin Globulin Albumin/Globulin Ratio Triglycerides Cholesterol LDL Cholesterol VLDL Cholesterol HDL Cholesterol Heart Disease Risk Ratio Lipase TSH 3rd Generation - Diagnostic Findings Procedure: Chest x-ray: report reviewed by me - EKG EKG results: interpreted by me EKG shows: sinus rhythm <Ritchie Metzger - Last Filed: 05/30/17 09:21> History of Present Illness History of present illness: Cardiology addendum Patient examined chart reviewed discussed with nurse Lisseth torres and also with Lien Rivera his longtime friend who has power of attorney general. Patient was hospitalized last week with atrial fib with increased ventricular rate. He had abnormal stress test in the office Saturday demonstrating ischemia and impaired LV function, EF 37%. Patient now presents again with chest pain and has had a non-Q-wave [place]. Troponin has risen to 3.2. INR 1.8 Creatinine 1.0. I recommended cardiac cath. Procedure risk and benefits reviewed with patient with his caregiver and nurse Lisseth torres present for the entire discussion. He agrees to proceed. 2+ femoral pulse no bruit and good distal pulses. Plan Cardiac cath today probable stent. Cardiology Physical Exam - Constitutional Vitals: Vital Signs Temp Pulse Resp BP Pulse Ox 97.3 F L 75 18 117/58 96 05/30/17 07:55 05/30/17 07:55 05/30/17 07:55 05/30/17 07:55 05/30/17 07:55 Intake and Output 05/29/17 05/30/17 05/30/17 23:59 07:59 15:59 Output Total 150 / 150 Balance -150 / -150 Output: Urine 150 / 150 Other: Voiding Method Urinal Weight 93.44 kg 95.368 kg Patient Weight 05/30/17 23:59 Weight 95.368 kg Result/EKG - Labs CBC & BMP: 05/30/17 02:31 05/30/17 02:31 Labs: Laboratory Results - last 24 hr 05/29/17 05/29/17 05/29/17 20:01 20:01 20:01 WBC 7.3 RBC 4.99 Hgb 15.7 Hct 45.0 MCV 90.2 MCH 32 MCHC 34.9 RDW 13.5 Plt Count 187 MPV 10.5 Neut % (Auto) 54.7 Lymph % (Auto) 28.5 [place] % (Auto) 11.8 Eos % (Auto) 2.3 Baso % (Auto) 1.6 H Neut # (Auto) 4.0 Lymph # (Auto) 2.1 [place] # (Auto) 0.9 H Eos # (Auto) 0.2 Baso # (Auto) 0.1 Immature Gran % 1.1 Nucleated RBC % 0.0 Immature Gran # 0.08 Nucleated RBCs # 0.00 INR PT Patient/Control Mix Sodium 143 Potassium 4.0 Chloride 109 H Carbon Dioxide 25 Anion Gap 13.0 BUN 23 H Creatinine 1.20 GFR Calculation 66 BUN/Creatinine Ratio 19.00 Glucose 120 H Calculated Osmolality 289.0 Calcium 8.7 Magnesium Total Bilirubin 0.70 AST 24 ALT 19 Alkaline Phosphatase 101 Troponin I 0.133 H B-Natriuretic Peptide Total Protein 5.8 L Albumin 3.2 L Globulin 2.6 Albumin/Globulin Ratio 1.2 Triglycerides Cholesterol LDL Cholesterol VLDL Cholesterol HDL Cholesterol Heart Disease Risk Ratio Lipase TSH 3rd Generation 05/29/17 05/29/17 05/29/17 20:01 20:01 20:01 WBC RBC Hgb Hct MCV MCH MCHC RDW Plt Count MPV Neut % (Auto) Lymph % (Auto) [place] % (Auto) Eos % (Auto) Baso % (Auto) Neut # (Auto) Lymph # (Auto) [place] # (Auto) Eos # (Auto) Baso # (Auto) Immature Gran % Nucleated RBC % Immature Gran # Nucleated RBCs # INR 1.8 PT Patient/Control Mix 19.8 D Sodium Potassium Chloride Carbon Dioxide Anion Gap BUN Creatinine GFR Calculation BUN/Creatinine Ratio Glucose Calculated Osmolality Calcium Magnesium 2.4 Total Bilirubin AST ALT Alkaline Phosphatase Troponin I B-Natriuretic Peptide 170 H Total Protein Albumin Globulin Albumin/Globulin Ratio Triglycerides Cholesterol LDL Cholesterol VLDL Cholesterol HDL Cholesterol Heart Disease Risk Ratio Lipase 149.0 TSH 3rd Generation 05/29/17 05/30/17 05/30/17 23:21 02:31 02:31 WBC 7.0 RBC 4.54 Hgb 14.2 Hct 41.1 L MCV 90.5 MCH 31 MCHC 34.5 RDW 13.6 Plt Count 183 MPV 10.9 Neut % (Auto) 57.3 Lymph % (Auto) 25.3 [place] % (Auto) 13.2 H Eos % (Auto) 2.0 Baso % (Auto) 1.3 H Neut # (Auto) 4.0 Lymph # (Auto) 1.8 [place] # (Auto) 0.9 H Eos # (Auto) 0.1 Baso # (Auto) 0.1 Immature Gran % 0.9 Nucleated RBC % 0.0 Immature Gran # 0.06 Nucleated RBCs # 0.00 INR PT Patient/Control Mix Sodium Potassium Chloride Carbon Dioxide Anion Gap BUN Creatinine GFR Calculation BUN/Creatinine Ratio Glucose Calculated Osmolality Calcium Magnesium Total Bilirubin AST ALT Alkaline Phosphatase Troponin I 2.050 H D 3.260 H D B-Natriuretic Peptide Total Protein Albumin Globulin Albumin/Globulin Ratio Triglycerides Cholesterol LDL Cholesterol VLDL Cholesterol HDL Cholesterol Heart Disease Risk Ratio Lipase TSH 3rd Generation 05/30/17 05/30/17 05/30/17 02:31 02:31 02:31 WBC RBC Hgb Hct MCV MCH MCHC RDW Plt Count MPV Neut % (Auto) Lymph % (Auto) [place] % (Auto) Eos % (Auto) Baso % (Auto) Neut # (Auto) Lymph # (Auto) [place] # (Auto) Eos # (Auto) Baso # (Auto) Immature Gran % Nucleated RBC % Immature Gran # Nucleated RBCs # INR PT Patient/Control Mix Sodium 144 Potassium 3.9 Chloride 109 H Carbon Dioxide 28 Anion Gap 10.9 BUN 24 H Creatinine 1.00 GFR Calculation 83 BUN/Creatinine Ratio 24.00 H Glucose 97 Calculated Osmolality 289.8 Calcium 8.4 L Magnesium 2.5 H Total Bilirubin 0.60 AST 31 ALT 16 Alkaline Phosphatase 80 Troponin I B-Natriuretic Peptide 352 H Total Protein 5.1 L Albumin 2.9 L Globulin 2.2 L Albumin/Globulin Ratio 1.3 Triglycerides 117 Cholesterol 190 LDL Cholesterol 116.0 VLDL Cholesterol 23.4 HDL Cholesterol 35 L Heart Disease Risk Ratio 5.43 Lipase TSH 3rd Generation 1.190 05/30/17 02:31 WBC RBC Hgb Hct MCV MCH MCHC RDW Plt Count MPV Neut % (Auto) Lymph % (Auto) [place] % (Auto) Eos % (Auto) Baso % (Auto) Neut # (Auto) Lymph # (Auto) [place] # (Auto) Eos # (Auto) Baso # (Auto) Immature Gran % Nucleated RBC % Immature Gran # Nucleated RBCs # INR 1.8 PT Patient/Control Mix 20.3 Sodium Potassium Chloride Carbon Dioxide Anion Gap BUN Creatinine GFR Calculation BUN/Creatinine Ratio Glucose Calculated Osmolality Calcium Magnesium Total Bilirubin AST ALT Alkaline Phosphatase Troponin I B-Natriuretic Peptide Total Protein Albumin Globulin Albumin/Globulin Ratio Triglycerides Cholesterol LDL Cholesterol VLDL Cholesterol HDL Cholesterol Heart Disease Risk Ratio Lipase TSH 3rd Generation
--- NOTE | 2017-05-30 08:10 | EKG Report ---
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
[2017-05-30] MEDS ORDERED: DILTIAZEM CD 300 MG CAPSULE PO SCH (09:00)
[2017-05-30] MEDS ORDERED: METOPROLOL SUCCINATE XL 25 MG TABLET PO SCH (09:00)
[2017-05-30] MEDS: FLUTICASONE 50 MCG NASAL SPRAY 16 GM BOTTLE BOTH NARES SCH (09:35)
[2017-05-30] MEDS: BUDESONIDE/FORMOTEROL 160-4.5 INHALER 6 GM INH SCH ×2 (09:35→21:13)
--- NOTE | 2017-05-30 10:30 | History and Physical Update ---
Sedation H&P Update - History and Physical H&P was reviewed, the patient examined and there: are no changes in the patients condition since last H&P was completed. - Dictation Physical: refer to scanned H&P - Physical Exam Mental Status: alert and oriented Heart: other (Irregular rate is controlled the patient is at age fibrillation) Lung: clear to auscultation Abdomen: within normal limits Vitals: within normal limits - Sedation Plan for Sedation: moderate Patient Consent: Procedure disscussed with patient and patinet has consented., Risks and benefits were discussed with patient,including infection,, bleeding, injury to surrounding structures, seizure, temporary nerve, Patient understands and accepts potential risks/benefits and agrees to, proceed. ASA Class: III Airway Assessment: Class III: Soft palate, base of uvula visible
[2017-05-30] MEDS ORDERED: LIDOCAINE 1% 20 ML VIAL ONE (10:39)
[2017-05-30] MEDS ORDERED: HEPARIN/NACL 0.9% 2 UNITS/ML 1,000 ML IV ONE (10:39)
[2017-05-30] MEDS: INSULIN REGULAR 100 UNIT/ML SUBCUT SCH ×4 (10:52→21:11)
[2017-05-30] MEDS ORDERED: MIDAZOLAM 2 MG/2 ML VIAL ONE (10:53)
[2017-05-30] MEDS ORDERED: fentaNYL 100 MCG/2 ML VIAL ONE (10:53)
[2017-05-30] MEDS ORDERED: HEPARIN 5,000 UNIT/1 ML VIAL ONE (11:03)
[2017-05-30] MEDS ORDERED: CLOPIDOGREL 300 MG TABLET ONE (11:22)
[2017-05-30] MEDS ORDERED: CLOPIDOGREL 300 MG TABLET PO ONE (11:32)
--- NOTE | 2017-05-30 11:45 | Cardiac Catheterization ---
Date of Procedure:: 05/30/17 Pre-op Diagnosis: Non-ST elevation myocardial infarction Post-op diagnosis: same (Non-ST elevation myocardial infarction secondary to 99 % proximal LAD stenosis with MANUEL II flow) Procedure: Procedures: 1. Selective left and right coronary angiography 2. Right femoral iliac angiography 3. Closure right femoral arteriotomy with minx closure device 4. Percutaneous coronary mention of the proximal left anterior descending artery with a 3.0 x 18 mm Xience drug-eluting stent with 99% pre-stenosis and MANUEL II flow and 0% angiographic stenosis and MANUEL-3 flow post PCI After consent was taken from the patient. Taken to the catheterization lab for left heart catheterization via the femoral artery. Time out was taken and recorded. 1% lidocaine was infiltrated in the skin and subcutaneous tissue overlying the right femoral artery. Modified Seldinger technique and an 18- gauge Cook needle was used for access to the right femoral artery. An 0.35 J- wire was advanced through the needle into the central aorta under fluoroscopy. A small skin was made and a 6 Cymro sheath was placed over the wire. The sheath was aspirated and flushed. A JL46 was advanced over the wires in the left main coronary artery was selectively engaged. Multiple orthogonal views of the left system were obtained. The catheter was then exchanged over the wire. The sheath was aspirated and flushed. A JR4 catheter was advanced over the wire into the central aorta. The right coronary was selectively engaged and orthogonal views of the right coronary artery were obtained. The catheter was then exchanged over the wire, the sheath was aspirated and flushed. At this time an angled pigtail catheter was advanced in the central aorta and multiple attempts to cross the valve were unsuccessful. Previously reviewed his echo no further attempts were made. The valve is significantly calcified and mildly sclerotic. The machine operator packaging reviewed the films. The room was set up for the intervention mode in the background of warfarin with an INR of 1.8 the patient received 5000 units of heparin and ACT exceeded 300 seconds. This time an EBU 4.5 guide was advanced over the wire in the central aorta the left main coronary was selectively engaged. A 180 cm per water wire was used to cross the area of high -grade stenosis. The wire was occlusive. A nice knuckle in the wire had been formed at the apex. At this time the area was predilated with a 2.0 x 12 mm Sachse balloon. There was adequate yielding. The balloon was removed and the area was stented with a 3.0 x 18 mm Xience drug-eluting stent. Stent balloon was removed and 2 inflations to maximum 18 luc were performed with an NC Quantum balloon (3.0). There was excellent angiographic result. 2 orthogonal views were obtained the wire was removed the cath was exchanged over the wire. The sheath was aspirated and flushed and a right femoral and iliac angiography was performed. The access site was amenable for closure and the area was reprepped with ChloraPrep and draped with sterile towels. The Mynx closure device was used in standard technique. There was no hematoma and distal pulses were good. Total diagnostic fluoroscopy time 7.2 minutes total fluoroscopy dose 1113 mGy Total contrast exposure 120 cc of Omnipaque FINDINGS: Ao:103/74 EF: Not assessed was documented to be 50% by transthoracic echo earlier today LM: Very large, long and angiographically normal. LAD: There is a moderate to small size vessel has a 99% proximal occlusion just before the takeoff of the first diagonal with MANUEL II flow. There appears to even be some homocollaterals. The wire was occlusive once this lesion was wired. There is mild disease at the first diagonal. This vessel reaches and the apex of the ventricle Ramus intermedius: There is a mild size ramus intermedius that is moderately diffusely diseased. It appears to be approximately 50%. LCx: Left circumflex is a dominant vessel and has mild luminal irregularities no high-grade epicardial stenosis RCA: The very small nondominant vessel that has a very focal discrete lesion that is approximately 70% RFA/DAVID: Right femoral iliac arteries are tortuous angiographically normal stick is at access site for multiple branches not amenable to Angio-Seal. Assessment: 1. Acute coronary syndrome secondary to subtotal occluded proximal LAD status post successful PCI with CELIA 1 (3.0 x 18 mm Xience drug-eluting stent) 2. Atrial fibrillation with uncontrolled ventricular response PLAN: 1. Monitored in the ICU for bleeding risk and rate control 2. Add statin 3. Increase beta-marifer 4. Consult cardiac rehab for education potential cardiac rehab candidate and home exercise education program Implants: 3.0 x 18 mm Xience drug-eluting stent Mynx closure device right femoral artery Anesthesia: moderate conscious sedation Surgeon / Physician: Francoise Hogan Hose Wrapper: none Estimated blood loss: none Specimens: none sent Condition: stable Disposition: floor - Medications / Follow-up
[2017-05-30] MEDS ORDERED: SODIUM CHLORIDE 0.45% 1,000 ML IV SCH (12:00)
[2017-05-30] MEDS: FEXOFENADINE 180 MG TABLET PO SCH (12:15)
[2017-05-30] MEDS: guaiFENesin/DM ER 600-30 MG TABLET PO SCH ×2 (12:15→21:13)
[2017-05-30] MEDS: CEFUROXIME 250 MG TABLET PO SCH ×2 (12:15→21:13)
[2017-05-30] MEDS: PANTOPRAZOLE 40 MG TABLET PO SCH (12:16)
[2017-05-30] MEDS: GLUCOSAMINE 500 MG TABLET PO SCH (13:01)
[2017-05-30] MEDS ORDERED: WARFARIN 5 MG TABLET ONE (17:16)
[2017-05-30] MEDS: FUROSEMIDE 20 MG TABLET PO SCH (17:17)
[2017-05-30] MEDS ORDERED: WARFARIN 7.5 MG TABLET PO SCH (18:00)
[2017-05-30] MEDS: ATORVASTATIN 80 MG TABLET PO SCH (21:13)
[2017-05-30] MEDS: METOPROLOL SUCCINATE XL 25 MG TABLET PO SCH (21:13)
[2017-05-31 04:50] LABS: Basophils # 0.1 10*3/uL (0.0-0.2); Basophils % 0.9 % (0.0-0.8); Eosinophils # 0.1 10*3/uL (0.0-0.87); Eosinophils % 1.8 % (0.00-10.9); Hematocrit 42.6 VOL% (42.0-52.0); Hemoglobin 14.4 GM/DL (14.0-18.0); Immature Granulocytes % 0.8 %; Immature Granulocytes Absolute 0.06 #; Lymphocytes # 1.5 10*3/uL (1.4-4.0); Lymphocytes % 18.6 % (21.2-54.2); Mean Corpuscular HGB Conc 33.8 GM/DL (32-36); Mean Corpuscular Hemoglobin 31 PG (27-34); Mean Platelet Volume 10.4 FL (9.6-12.0); Monocytes % 11.9 % (1.7-12.7); Neutrophils # 5.3 10*3/uL (1.4-7.4); Platelet Count 161 T/CUMM (130-400); Red Blood Count 4.68 MC/CUMM (3.8-5.5); Red Cell Distribution Width 13.8 % (9.3-17.3)
[2017-05-31 05:24] LABS: Calcium 8.4 MG/DL (8.5-10.1); Magnesium 2.4 MG/DL (1.8-2.4); Potassium 4.1 MMOL/L (3.5-5.1)
[2017-05-31 05:33] LABS: INR 1.8
[2017-05-31 05:40] LABS: PT Patient Result 20.1 SECS
--- NOTE | 2017-05-31 06:52 | EKG Report ---
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
[2017-05-31] MEDS: INSULIN REGULAR 100 UNIT/ML SUBCUT SCH ×4 (07:44→21:18)
--- NOTE | 2017-05-31 07:52 | Cardiology Progress Note ---
Cardiology - PN: Subj Interval history: Cardiology note Status post non-Q-wave anterior NE with proximal LAD stent yesterday No pain. No shortness of breath. O2 sat 93% on 2 L cannula Blood pressure 104/60 Telemetry shows atrial fib ventricular rate 80-90 Irregular rhythm soft systolic murmur Decreased breath sounds but fairly clear Abdomen obese soft benign Right groin small ecchymotic bruise but no bruit or hematoma Distal pulses 1+ Lab data today White count 8.0 hemoglobin 14.6 hematocrit 42.6 INR 1.8 Sodium 143 potassium 4.1 chloride 111 CO2 25 BUN 15 creatinine 0.90 Glucose 95 Troponin down 2.3 Impression Status post non-Q-wave anterior NE with proximal LAD stent Intermediate branch 50%, circumflex mild, RCA 70% EF 40% Chronic atrial fibrillation Chronic anticoagulation with Coumadin Chronic hypertension Very hard of hearing Plan Transfer to telemetry Routine groin precautions discussed. Aspirin 81 mg and Plavix 75 mg daily Continue warfarin Metoprolol 50 mg twice daily DC diltiazem Begin losartan 50 mg daily Atorvastatin 80 mg daily He has longtime friend Lien Rivera has POA and is not present at this time. Exam (Progress Note) - Constitutional Vitals: Period Temp Pulse Resp BP Sys/Miles Pulse Ox Last 24 Hr 96.8 F-98.9 F 68-130 12-27 91-141/43-97 92-97 Result/EKG - Labs CBC & BMP: 05/31/17 04:12 05/31/17 04:12 Labs: Laboratory Results - last 24 hr 05/30/17 05/30/17 05/30/17 10:34 12:20 12:20 WBC RBC Hgb Hct MCV MCH MCHC RDW Plt Count MPV Neut % (Auto) Lymph % (Auto) [place] % (Auto) Eos % (Auto) Baso % (Auto) Neut # (Auto) Lymph # (Auto) [place] # (Auto) Eos # (Auto) Baso # (Auto) Immature Gran % Nucleated RBC % Immature Gran # Nucleated RBCs # Immature Plt Fraction INR PT Patient/Control Mix Sodium Potassium Chloride Carbon Dioxide Anion Gap BUN Creatinine GFR Calculation BUN/Creatinine Ratio Glucose POC Glucose 96 103 Calculated Osmolality Calcium Magnesium Troponin I 3.120 H 05/30/17 05/30/17 05/30/17 15:09 19:43 21:05 WBC RBC Hgb Hct MCV MCH MCHC RDW Plt Count MPV Neut % (Auto) Lymph % (Auto) [place] % (Auto) Eos % (Auto) Baso % (Auto) Neut # (Auto) Lymph # (Auto) [place] # (Auto) Eos # (Auto) Baso # (Auto) Immature Gran % Nucleated RBC % Immature Gran # Nucleated RBCs # Immature Plt Fraction INR PT Patient/Control Mix Sodium Potassium Chloride Carbon Dioxide Anion Gap BUN Creatinine GFR Calculation BUN/Creatinine Ratio Glucose POC Glucose 136 H 130 H Calculated Osmolality Calcium Magnesium Troponin I 3.250 H 05/31/17 05/31/17 05/31/17 04:12 04:12 04:12 WBC 8.0 RBC 4.68 Hgb 14.4 Hct 42.6 MCV 91.0 MCH 31 MCHC 33.8 RDW 13.8 Plt Count 161 MPV 10.4 Neut % (Auto) 66.0 Lymph % (Auto) 18.6 L [place] % (Auto) 11.9 Eos % (Auto) 1.8 Baso % (Auto) 0.9 H Neut # (Auto) 5.3 Lymph # (Auto) 1.5 [place] # (Auto) 1.0 H Eos # (Auto) 0.1 Baso # (Auto) 0.1 Immature Gran % 0.8 Nucleated RBC % 0.0 Immature Gran # 0.06 Nucleated RBCs # 0.00 Immature Plt Fraction 0.0 INR PT Patient/Control Mix Sodium 143 Potassium 4.1 Chloride 111 H Carbon Dioxide 25 Anion Gap 11.1 BUN 15 Creatinine 0.90 GFR Calculation 95 BUN/Creatinine Ratio 16.00 Glucose 95 POC Glucose Calculated Osmolality 285.0 Calcium 8.4 L Magnesium 2.4 Troponin I 2.030 H D 05/31/17 05/31/17 04:12 07:28 WBC RBC Hgb Hct MCV MCH MCHC RDW Plt Count MPV Neut % (Auto) Lymph % (Auto) [place] % (Auto) Eos % (Auto) Baso % (Auto) Neut # (Auto) Lymph # (Auto) [place] # (Auto) Eos # (Auto) Baso # (Auto) Immature Gran % Nucleated RBC % Immature Gran # Nucleated RBCs # Immature Plt Fraction INR 1.8 PT Patient/Control Mix 20.1 Sodium Potassium Chloride Carbon Dioxide Anion Gap BUN Creatinine GFR Calculation BUN/Creatinine Ratio Glucose POC Glucose 92 Calculated Osmolality Calcium Magnesium Troponin I Quality Measures - VTE Contraindication to Pharmacological VTE Prophylaxis: Already on Theraputic Agent , No Prophylaxis Needed Specialty Discharge - Follow Up or Referrals
[2017-05-31] MEDS ORDERED: DEXTROSE 50% 25 GM/50 ML SYRINGE IV PRN (08:30)
[2017-05-31] MEDS: FLUTICASONE 50 MCG NASAL SPRAY 16 GM BOTTLE BOTH NARES SCH (08:46)
[2017-05-31] MEDS: BUDESONIDE/FORMOTEROL 160-4.5 INHALER 6 GM INH SCH ×2 (08:47→21:19)
[2017-05-31] MEDS: CEFUROXIME 250 MG TABLET PO SCH ×2 (08:49→21:17)
[2017-05-31] MEDS: FEXOFENADINE 180 MG TABLET PO SCH (08:49)
[2017-05-31] MEDS: GLUCOSAMINE 500 MG TABLET PO SCH (08:49)
[2017-05-31] MEDS: CLOPIDOGREL 75 MG TABLET PO SCH (08:50)
[2017-05-31] MEDS: guaiFENesin/DM ER 600-30 MG TABLET PO SCH ×2 (08:50→21:18)
[2017-05-31] MEDS: METOPROLOL SUCCINATE XL 25 MG TABLET PO SCH ×2 (08:51→21:18)
[2017-05-31] MEDS: LOSARTAN 50 MG TABLET PO SCH (08:56)
[2017-05-31] MEDS: PANTOPRAZOLE 40 MG TABLET PO SCH (08:57)
[2017-05-31] MEDS ORDERED: WARFARIN 5 MG TABLET PO SCH (18:00)
[2017-05-31] MEDS: FUROSEMIDE 20 MG TABLET PO SCH (18:02)
[2017-05-31] MEDS: ATORVASTATIN 80 MG TABLET PO SCH (21:18)
--- NOTE | 2017-06-01 03:13 | Cardiology Progress Note ---
Cardiology - PN: Subj Interval history: Cardiology note 86-year-old man status post non-Q-wave anterior NE with proximal LAD stent May 30 No chest pain Appetite fair Blood pressure 112/70 O2 sat 94% on 2 L Telemetry shows atrial fib ventricular rate around 80 Irregular rhythm soft systolic murmur Decreased breath sounds but clear Abdomen nontender Right groin has small ecchymotic bruise but no bruit or hematoma and distal pulses 1+ Impression Status post non-Q-wave anterior NE with proximal LAD stent Intermediate branch 50%, circumflex mild, RCA 70%, EF 40% Chronic atrial fibrillation Chronic hypertension Chronic anticoagulation with Coumadin Very hard of hearing Plan Continue aspirin 81 mg and Plavix 75 mg daily Continue metoprolol 50 mg twice daily Continue warfarin Continue losartan 50 mg daily Atorvastatin 80 mg daily His longtime friend Lien Rivera has POA. Exam (Progress Note) - Constitutional Vitals: Period Temp Pulse Resp BP Sys/Miles Pulse Ox Last 24 Hr 96.9 F-98.8 F 74-108 14-24 91-157/48-75 92-97 Result/EKG - Labs CBC & BMP: 05/31/17 04:12 05/31/17 04:12 Labs: Laboratory Results - last 24 hr 05/31/17 05/31/17 05/31/17 04:12 04:12 04:12 WBC 8.0 RBC 4.68 Hgb 14.4 Hct 42.6 MCV 91.0 MCH 31 MCHC 33.8 RDW 13.8 Plt Count 161 MPV 10.4 Neut % (Auto) 66.0 Lymph % (Auto) 18.6 L [place] % (Auto) 11.9 Eos % (Auto) 1.8 Baso % (Auto) 0.9 H Neut # (Auto) 5.3 Lymph # (Auto) 1.5 [place] # (Auto) 1.0 H Eos # (Auto) 0.1 Baso # (Auto) 0.1 Immature Gran % 0.8 Nucleated RBC % 0.0 Immature Gran # 0.06 Nucleated RBCs # 0.00 Immature Plt Fraction 0.0 INR PT Patient/Control Mix Sodium 143 Potassium 4.1 Chloride 111 H Carbon Dioxide 25 Anion Gap 11.1 BUN 15 Creatinine 0.90 GFR Calculation 95 BUN/Creatinine Ratio 16.00 Glucose 95 POC Glucose Calculated Osmolality 285.0 Calcium 8.4 L Magnesium 2.4 Troponin I 2.030 H D 07/28/17 07/28/17 07/28/17 04:12 07:28 11:16 WBC RBC Hgb Hct MCV MCH MCHC RDW Plt Count MPV Neut % (Auto) Lymph % (Auto) [place] % (Auto) Eos % (Auto) Baso % (Auto) Neut # (Auto) Lymph # (Auto) [place] # (Auto) Eos # (Auto) Baso # (Auto) Immature Gran % Nucleated RBC % Immature Gran # Nucleated RBCs # Immature Plt Fraction INR 1.8 PT Patient/Control Mix 20.1 Sodium Potassium Chloride Carbon Dioxide Anion Gap BUN Creatinine GFR Calculation BUN/Creatinine Ratio Glucose POC Glucose 92 103 Calculated Osmolality Calcium Magnesium Troponin I 05/31/17 05/31/17 15:30 19:26 WBC RBC Hgb Hct MCV MCH MCHC RDW Plt Count MPV Neut % (Auto) Lymph % (Auto) [place] % (Auto) Eos % (Auto) Baso % (Auto) Neut # (Auto) Lymph # (Auto) [place] # (Auto) Eos # (Auto) Baso # (Auto) Immature Gran % Nucleated RBC % Immature Gran # Nucleated RBCs # Immature Plt Fraction INR PT Patient/Control Mix Sodium Potassium Chloride Carbon Dioxide Anion Gap BUN Creatinine GFR Calculation BUN/Creatinine Ratio Glucose POC Glucose 100 193 H Calculated Osmolality Calcium Magnesium Troponin I Quality Measures - VTE Contraindication to Pharmacological VTE Prophylaxis: Already on Theraputic Agent , No Prophylaxis Needed Specialty Discharge - Follow Up or Referrals
[2017-06-01 06:03] LABS: Basophils # 0.1 10*3/uL (0.0-0.2); Basophils % 0.8 % (0.0-0.8); Eosinophils # 0.2 10*3/uL (0.0-0.87); Eosinophils % 2.3 % (0.00-10.9); Hematocrit 40.6 VOL% (42.0-52.0); Hemoglobin 14.1 GM/DL (14.0-18.0); Immature Granulocytes Absolute 0.09 #; Lymphocytes # 1.6 10*3/uL (1.4-4.0); Lymphocytes % 19.1 % (21.2-54.2); Mean Corpuscular HGB Conc 34.7 GM/DL (32-36); Mean Corpuscular Hemoglobin 31 PG (27-34); Mean Platelet Volume 10.6 FL (9.6-12.0); Monocytes # 1.1 10*3/uL (0.11-0.8); Neutrophils # 5.5 10*3/uL (1.4-7.4); Neutrophils % 63.8 % (38.7-73.9); Platelet Count 156 T/CUMM (130-400); Red Blood Count 4.51 MC/CUMM (3.8-5.5); Red Cell Distribution Width 13.5 % (9.3-17.3); White Blood Count 8.6 T/CUMM (4-12)
[2017-06-01 06:38] LABS: Calcium 8.6 MG/DL (8.5-10.1); Osmolality,Calculated 283.1 MOS/KG (273-304); Potassium 4.1 MMOL/L (3.5-5.1)
[2017-06-01] MEDS: INSULIN REGULAR 100 UNIT/ML SUBCUT SCH ×2 (08:46→12:50)
[2017-06-01] MEDS: guaiFENesin/DM ER 600-30 MG TABLET PO SCH (08:55)
[2017-06-01] MEDS: GLUCOSAMINE 500 MG TABLET PO SCH (08:55)
[2017-06-01] MEDS: CEFUROXIME 250 MG TABLET PO SCH (08:55)
[2017-06-01] MEDS: LOSARTAN 50 MG TABLET PO SCH (08:55)
[2017-06-01] MEDS: PANTOPRAZOLE 40 MG TABLET PO SCH (08:56)
[2017-06-01] MEDS: FEXOFENADINE 180 MG TABLET PO SCH (08:56)
[2017-06-01] MEDS: METOPROLOL SUCCINATE XL 25 MG TABLET PO SCH (08:56)
[2017-06-01] MEDS: CLOPIDOGREL 75 MG TABLET PO SCH (08:56)
[2017-06-01] MEDS: FLUTICASONE 50 MCG NASAL SPRAY 16 GM BOTTLE BOTH NARES SCH (08:57)
[2017-06-01] MEDS: BUDESONIDE/FORMOTEROL 160-4.5 INHALER 6 GM INH SCH (08:57)
[2017-06-01 12:42] VITALS: BP 127/54
--- NOTE | 2017-06-01 14:21 | Discharge Summary ---
Hospital Course - Hospital Course Hospital Course: Cardiology discharge 86-year-old man with chronic hypertension and chronic atrial fib admitted with chest pain and shortness of breath. He had a non-Q-wave IA and was taken to the Home Care Rn by Dr. Mcneal. Cardiac cath showed a subtotal occlusion LAD proximally which was stented with a 3.0 x 18 Zions drug-eluting stent With excellent result. The intermediate has 50% stenosis, circumflex mild, RCA 70% stenosis and EF 40%. Right groin soft and dry following minx closure device. The peak troponin was 3.250. His postinfarction course has been uncomplicated. He denies chest pain or shortness of breath. He is very hard of hearing but quite pleasant. Lab data on discharge White count 8.6 hemoglobin 14.1 hematocrit 40.6 sodium 142 potassium 4.1 chloride 108 CO2 28 BUN 15 creatinine 0.90 glucose 90 Peak troponin 3.250 Impression Status post non-Q-wave anterior IA with proximal LAD stent Intermediate branch 50%, circumflex mild, RCA 70%, EF 40% Chronic atrial fib Chronic hypertension Chronic anticoagulated with Coumadin Very hard of hearing Hyperlipidemia Status post right hip replacement The patient is discharged home today. Plan No stooping straining or heavy lifting for 1 week to minimize potential groin problems Continue aspirin 81 mg and Plavix 75 mg daily Continue metoprolol 50 mg twice daily Continue warfarin daily Continue losartan 50 mg daily Continue atorvastatin 40 mg daily Continue other home medications. Office visit with EKG, pro time /INR and BMP with Dr. Malhotra in 1 week - Time spent with patient Time with patient DS: Greater than 30 minutes Diagnosis - Discharge Diagnosis (1) Status post insertion of drug-eluting stent into left anterior descending ( LAD) artery Status: Acute (2) Hard of hearing Status: Chronic (3) History of right hip replacement Status: Chronic (4) Status post right hip replacement Status: Chronic (5) Hyperlipidemia Status: Chronic Specialty Discharge - Follow Up or Referrals Follow up with: Leroy Malhotra MD [Physician] - 1 Week ([address] Malhotra with EKG, pro time/INR and BMP) Discharge Plan - Discharge Data Disposition: Disch To Home/Self Care Condition at Discharge: Stable Discharge Diet: low fat, low cholesterol Activity: no prolonged standing Hygiene: no restrictions Weight Bearing at Discharge: weight bear as tolerated Driving: not for (No driving for 48 hours) Contact your physician if you experience:: fever over 101, Difficulty voiding, Redness or swelling, Nausea/Vomiting, Shortness of breath, Bleeding - Discharge Medications No Action Furosemide Tab [Lasix Tab] 20 mg PO QPM dilTIAZem HCl [Cartia XT] 300 mg PO DAILY Warfarin [Coumadin] 7.5 mg PO SUMOTUWETHSA Albuterol Inhaler [Proventil Inhaler] 2 puff INH Q6H PRN #1 inhaler PRN Reason: Shortness Of Breath/Wheezing Fluticasone Propionate [Flonase Allergy Relief] 1 spray BOTH NARES DAILY #10 ml Cefuroxime Tab [Ceftin] 250 mg PO BID #14 tablet Gluc Vann/Chondro Vann A/Vit C/Mn [Glucosamine Chondroitin Tab] 1 tablet PO DAILY Azithromycin Tab [Zithromax Tab] 250 mg PO DAILY #6 tablet Fexofenadine [Diane] 180 mg PO DAILY #10 tablet Metoprolol Succinate Xl [Toprol Xl] 25 mg PO BID #60 tablet guaiFENesin/DM ER 600-30 [Mucinex Dm 600-30 MG] 1 tablet PO BID #20 tablet Budesonide/Formoterol 160-4.5 [Symbicort 160-4.5] 2 puff INH BID #2 inhaler Warfarin [Coumadin] 5 mg PO FR - Follow Up or Referral - Forms/Instructions Instructions: Myocardial Infarction (GEN), Left Heart Catheterization (DC), Heart Healthy Diet (GEN), Coronary Intravascular Stent Placement (DC) Additional Discharge Instructions: Aspirin 81 mg daily and Plavix 75 mg daily. Atorvastatin 40 mg daily. Losartan 50 mg daily has been added to his medical regimen. Exam - Constitutional Vitals: Period Temp Pulse Resp BP Sys/Miles Pulse Ox Last 24 Hr 97.3 F-98.8 F 86-108 16-20 112-157/54-70 93-98 General appearance: over weight - Head Head exam: Present: normal inspection, other (Very hard of hearing) - Eye Eye exam: Present: EOMI Pupils: Present: ARIELLE - ENT ENT exam: Present: normal exam - Neck Neck exam: Present: normal inspection - Respiratory Respiratory exam: Present: decreased breath sounds - Cardiovascular Cardiovascular exam: Present: irregular rhythm, systolic murmur - GI/Abdominal GI/Abdominal exam: Present: normal bowel sounds, soft - Extremities Exam Extremities exam: Present: normal inspection - Back Exam Back exam: Present: normal inspection - Neurological Exam Neurological exam: Present: alert, oriented X3 - Psychiatric Psychiatric exam: Present: normal affect, normal mood - Skin Skin exam: Present: normal color, warm, dry Discharge Results Procedures and tests throughout hospitalization: Pending Orders 06/02/17 04:00 BMP w/ Mg [Basic Metabolic Panel w/Mg] IN AM Comp Blood Count Auto Diff IN AM 06/03/17 04:00 BMP w/ Mg [Basic Metabolic Panel w/Mg] IN AM Comp Blood Count Auto Diff IN AM Labs on day of discharge: Labs from last 24 hours 06/01/17 06/01/17 06/01/17 11:41 07:09 05:47 WBC RBC Hgb Hct MCV MCH MCHC RDW Plt Count MPV Neut % (Auto) Lymph % (Auto) [place] % (Auto) Eos % (Auto) Baso % (Auto) Neut # (Auto) Lymph # (Auto) [place] # (Auto) Eos # (Auto) Baso # (Auto) Immature Gran % Nucleated RBC % Immature Gran # Nucleated RBCs # Immature Plt Fraction Sodium 142 Potassium 4.1 Chloride 108 H Carbon Dioxide 28 Anion Gap 10.1 BUN 15 Creatinine 0.90 GFR Calculation 96 BUN/Creatinine Ratio 16.00 Glucose 90 POC Glucose 123 H 94 Calculated Osmolality 283.1 Calcium 8.6 06/01/17 05/31/17 05/31/17 05:47 19:26 15:30 WBC 8.6 RBC 4.51 Hgb 14.1 Hct 40.6 L MCV 90.0 MCH 31 MCHC 34.7 RDW 13.5 Plt Count 156 MPV 10.6 Neut % (Auto) 63.8 Lymph % (Auto) 19.1 L [place] % (Auto) 13.0 H Eos % (Auto) 2.3 Baso % (Auto) 0.8 Neut # (Auto) 5.5 Lymph # (Auto) 1.6 [place] # (Auto) 1.1 H Eos # (Auto) 0.2 Baso # (Auto) 0.1 Immature Gran % 1.0 Nucleated RBC % 0.0 Immature Gran # 0.09 Nucleated RBCs # 0.00 Immature Plt Fraction 0.0 Sodium Potassium Chloride Carbon Dioxide Anion Gap BUN Creatinine GFR Calculation BUN/Creatinine Ratio Glucose POC Glucose 193 H 100 Calculated Osmolality Calcium DS: Provider Date of admission: 05/29/17 22:08 Primary care physician: . No PCP Attending physician on admission: Ritchie Metzger MD Consults: 05/30/17 11:30 Consult to Cardiac Rehabilitation [CONS] Routine Reason for Cardiac Rehabilitation: Risk Factor Modification Discharging clinician: Ritchie Metzger MD Expected date of discharge: 06/01/17
--- NOTE | 2017-06-02 16:38 | EKG Report ---
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
--- NOTE | 2017-06-04 11:04 | Physician Query Form ---
CLICK EDIT DOCUMENT TO SELECT QUERY ANSWER --> OK --> SIGN Nazanin Jaffe RN, CCDS Certified Clinical Supervisor [employer] W) [phone] (f) [phone] [email or web address]: Make your selection(s) from the choices in EACH section by typing an "x" and enter comments in the comment section. Please use your independent medical judgment in providing your response. This request does not imply that any particular answer is desired or expected. CLINICAL INDICATORS: (Providers should not edit this section) The medical record indicates that the patient was admitted with a NSTEMI, History of CHF, BNP increased from 170# to 352#, EF 40% and the patient appeared to be on a maintenance dose of Lasix 20 mg PO. Please provide further specificity regarding CHF. ACUITY: ( x) Acute ( ) Chronic ( ) Acute on Chronic ( ) Clinically unable to determine TYPE: ( x) Systolic (HFrEF - heart failure with reduced systolic function/EF) ( ) Diastolic (HFpEF - heart failure with preserved systolic function/EF) ( ) Combined Systolic/Diastolic ( ) Other, please specify: ( ) Clinically unable to determine ( ) Past Medical History of Systolic CHF ( ) Past Medical History of Diastolic CHF ( x) Clinically unable to determine COMMENTS: Patient DID NOT have heart failure PLEASE ALSO DOCUMENT RESPONSE IN PROGRESS NOTES AND/OR DISCHARGE SUMMARY Use of terms such as suspected, likely, or probable (associated with a specific diagnosis that is being evaluated, monitored, or treated as if it exists) are acceptable and can be restated in the discharge summary if not ruled out. MTDD
== END 2017-06-01 15:44 | disposition home or self-care (01) | DRG 247 ==
LOC: EDBD → EDUNIT# → N.ED 19:45 → N.EDINP 22:08 → N.TELES 22:38 → N.CC 05-30 11:31 → N.TELES 05-31 10:10
PROVIDERS: ADMIT Internal Medicine Cardiovascular Disease; ATTEND Internal Medicine Cardiovascular Disease